=== PATIENT | female | born 1995 | race Caucasian/White ===

== ENCOUNTER 2021-09-20 13:52 | Outpatient (CLI) | payer MEDICAID, SELFPAY ==
[2021-09-20 18:01] LABS: Chlamydia DNA Amplified* DETECTED (No Detected)
[2021-09-20 18:02] LABS: GC DNA Amplified* Not Detected (No Detected)
[2021-09-20 18:02] LABS: Hepatitis B Surface Antigen* Negative (Negative)
[2021-09-20 18:08] LABS: HIV 1/2/P24 Combo Screen* Negative (Negative)
[2021-09-20 18:19] LABS: Hepatitis C Virus Antibody* Negative (Negative)
[2021-09-22 23:33] LABS: Rapid Plasma Reagin (RPR) Non Reactive (Non Reactive)
[2021-09-23 01:29] LABS: Rubella Antibody IgG 9.3 IU/mL; Varicella-Zoster Virus Ab, IgG 90.1 IV
== END 2021-09-20 13:53 | disposition home or self-care (01) ==
PROVIDERS: Visit Provider Advanced Practice Midwife
DX: Z34.91 Encounter for supervision of normal pregnancy, unspecified, first trimester (principal); O20.9 Hemorrhage in early pregnancy, unspecified; Z3A.01 Less than 8 weeks gestation of pregnancy
CPT/HCPCS: 76817; 86592; 86703; 86762; 86787; 86803; 86850; 86900; 86901; 87086; 87340; 87491; 87591

== ENCOUNTER 2021-09-28 20:34 | Emergency (ER) | payer MEDICAID, SELFPAY ==
[2021-09-28 20:42] VITALS: BP 113/75; PULSE 80; RESP 16; TEMP 37.1; O2SAT 100; BMI 27.6
--- NOTE | 2021-09-28 21:00 | ED.NURSE ---
patient states feeling better, MD aware
[2021-09-28] MEDS: ELECTROLYTES/DEXTROSE ORAL SOL 1,000 ML 1014 ML PO (21:02)
[2021-09-28 21:16] LABS: Appearance Urine Slightly Cloudy (Clear); Bilirubin Urine Negative (Negative); Blood Urine 1+ (Negative); Color Urine Yellow (Yellow); Glucose Urine Negative (Negative); Ketones Urine 2+ (Negative); Leukocyte Esterase Urine Trace (Negative); Nitrite Urine Negative (Negative); Protein Urine Negative (Negative); Urobilinogen Urine 0.2 (0.2-1.0); pH Urine 6.5 (5.0-8.5)
[2021-09-28] MEDS: METOCLOPRAMIDE 10 MG TABLET 5 MG PO (21:23)
[2021-09-28] MEDS: diphenhydrAMINE 25 MG CAPSULE PO (21:23)
[2021-09-28 21:28] LABS: WBC Urine 0-2 (0-5)
[2021-09-28 21:29] LABS: Squamous Epithelial Cell Urine Moderate (None-Few)
--- NOTE | 2021-09-29 09:52 | ED_ITS ---
HPI - Nausea/Vomiting/Diarrhea General Date Seen: 09/28/21 Chief complaint: Nausea/Vomiting Stated complaint: 6-7 WEEKS PRGNT,CAN'T KEEP FOOD DOWN Time Seen by Provider: 09/28/21 20:54 Source: patient and family Mode of arrival: ambulatory Limitations: no limitations History of Present Illness HPI Narrative: Patient is a 25-year-old approximately 7 weeks gestation. She has been having nausea and vomiting. During this she [facility] And prescribed Zofran for this. She finds this is not working very well presents to the ER [facility]. Today she has vomited 3 times, she is trying small meals also, and fluids she is urinating okay. With no evidence of diarrhea too. She has no fevers no chills no coughing, denies any abdominal pain associated with this. There is no rashes or any other high- risk symptoms. She denies any dysuria frequency. She had at the same thing with the last . Although she feels that this is worse. MD elicited complaint: nausea and vomiting Related Data Home Medications Medication Instructions Recorded Confirmed prenat.vits,irina,[id number] 1 tab PO QDAY 09/20/21 09/28/21 Previous Rx's Medication Instructions Recorded ondansetron HCl 4 mg tablet 4 mg PO Q8H PRN #30 tab 09/20/21 metoclopramide HCl 5 mg tablet 5 mg PO TID PRN #30 tab 09/28/21 (Reglan) Allergies Allergy/AdvReac Type Severity Reaction Status Date / Time No Known Drug Allergies Allergy Verified 09/28/21 20:45 Review of Systems Status of ROS: Reports: 6 or more systems reviewed and unremarkable except as noted in History and below [facility] Medical History Chlamydia infection affecting Social History Smoking Status: Never smoker Second hand tobacco smoke exposure: No How often do you have a drink containing alcohol: never AUDIT-C Alcohol total score: 0 Non-prescribed substance use: denies use Little interest or pleasure in doing things: not at all Feeling down, depressed, or hopeless: not at all Exam Narrative: Exam Narrative: Patient is seen and assessed she is nontoxic speaking to me normally. Her pupils are equal round reactive to light there is no scleral icterus or redness, TMs are normal oropharynx is normal with excellent hydration status , her neck is supple, chest is clear heart sounds are normal , her abdomen is soft there was no organomegaly I cannot feel a gravid abdomen. Bowel sounds are normal. Skin reveals no petechiae or rashes Const: Vital Signs, click to edit/add: Vital Signs - 24 hr 09/28/21 20:42 Temperature 98.7 F Pulse Rate [Right Pulse Oximeter] 80 Respiratory Rate 16 Blood Pressure [Ri ght Upper Arm] 113/75 Pulse Oximetry 100 Documenting provider has reviewed patient's vital signs: yes Course Course Hospital Course: She was watch for greater than an hour the emergency room. I was able to reviewing UpToDate the next steps. Benadryl or diphenhydramine along with Reglan would be the next steps. We gave her 25 mg of Benadryl along with 5 mg of Reglan that she can use. She had no further vomiting, and her nausea improved slightly. She was able to keep down Pedialyte. Think at this point would be reasonable to discharge her home. I will have her call [facility] tomorrow to ensure that this is a working plan for her. She will not use Zofran with the medication Vital Signs Vital signs: Initial Vital Signs Temperature 98.7 F 09/28/21 20:42 Temperature Source Temporal Artery Scan 09/28/21 20:42 Pulse Rate 80 09/28/21 20:42 Pulse Rhythm 09/28/21 20:42 Respiratory Rate 16 09/28/21 20:42 Blood Pressure 113/75 09/28/21 20:42 Blood Pressure Mean 87 09/28/21 20:42 Blood Pressure Position Sitting 09/28/21 20:42 Pulse Oximetry 100 09/28/21 20:42 Oxygen Delivery Method 09/28/21 20:42 Vital Signs Temperature 98.7 F 09/28/21 20:42 Pulse Rate 80 09/28/21 20:42 Respiratory Rate 16 09/28/21 20:42 Blood Pressure 113/75 09/28/21 20:42 Pulse Oximetry 100 09/28/21 20:42 Temperature 98.7 F 09/28/21 20:42 Pulse Rate 80 09/28/21 20:42 Respiratory Rate 16 09/28/21 20:42 Blood Pressure 113/75 09/28/21 20:42 Pulse Oximetry 100 09/28/21 20:42 MDM - Nausea/Vomiting/Diarrhea MDM Narrative Medical decision making narrative: Differential diagnosis includes but is not limited to viral gastroenteritis, drug food poisoning, pyloric stenosis, gastritis, pancreatitis, hepatitis, cholecystitis, appendicitis, bowel obstruction, hyperemesis, cyclic vomiting syndrome, bulimia nervosa, migraine headache, motion sickness and medication side effect. These include the life threatening complications of appendicitis, drug food poisoning and bowel obstruction. Lab Data Labs: Lab Results 09/28/21 Range/Units 20:58 Urine Color Yellow (Yellow) Urine Appearance Slightly Cloudy A (Clear) Urine pH 6.5 (5.0-8.5) Ur Specific [place] 1.010 (1.000-1.030) Urine Protein Negative (Negative) Urine Glucose (UA) Negative (Negative) Urine Ketones 2+ A (Negative) Urine Blood 1+ A (Negative) Urine Nitrite Negative (Negative) Urine Bilirubin Negative (Negative) Urine Urobilinogen 0.2 (0.2-1.0) Ur Leukocyte Esterase Trace A (Negative) Urine RBC 2-5 A (0-2) Urine WBC 0-2 (0-5) Ur Squamous Epith Cells Moderate A (None-Few) Urine Bacteria None (None) Discharge Plan Discharge Clinical Impression: Hyperemesis arising during Patient Disposition: Home w/ Parent or Adult Condition: Improved Instructions: Hyperemesis Gravidarum (ED) Additional Instructions: home,rest and the medication. Take benadryl 25 mg with the reglan up to three times a day as needed. Please follow up with [employer] to check in also. Discharge Diet: Regular Prescriptions: New metoclopramide HCl [Reglan] 5 mg tablet 5 mg PO TID PRN (Reason: nausea and vomiting) Qty: 30 0RF No Action prenat.vits,irina,[id number] Tablet 1 tab PO QDAY 0RF ondansetron HCl 4 mg tablet 4 mg PO Q8H PRN (Reason: nausea and vomiting) Qty: 30 2RF Follow Up/Referrals: Provider,Not a Local [Primary Care Provider] - Stand Alone Forms: [employer] Info Instructions
== END 2021-09-28 22:24 | disposition home or self-care (01) ==
PROVIDERS: Emergency Provider Family Medicine
DX: O21.0 Mild hyperemesis gravidarum (principal); Z3A.01 Less than 8 weeks gestation of pregnancy
CPT/HCPCS: 81001; 99283; 99284; A9270

== ENCOUNTER 2021-10-04 14:54 | Outpatient (CLI) | payer MEDICAID, SELFPAY ==
--- NOTE | 2021-10-04 15:00 | CRLHL7_ITS ---
For Patients: As a result of the Century Cures Act, medical imaging exams and procedure reports are released immediately into your electronic medical record. You may view this report before your referring provider. If you have questions, please contact your health care provider. INDICATION: First trimester scan, establish dates. COMPARISON: 09/20/2021 TECHNIQUE: Real-time esparza-scale imaging of the pelvis was performed. FINDINGS: Sonographic imaging demonstrates a single living intrauterine gestation. The embryo demonstrates a regular cardiac rate measuring 173 beats per minute. The embryo`s crown-rump length measurement of 1.7 cm corresponds to a gestational age of 8 weeks 1 day with a sonographic due date of 05/15/2021. There is a normal-appearing yolk sac. There are no gross abnormalities noted within the embryo at this early state of development. The gestational sac has a normal appearance. There is a left superior perigestational hemorrhage measuring 1.7 x 1.3 x 2.8 cm. The amount of fluid within the sac appears appropriate for gestational age. The cervix is closed. The myometrium appears normal. The ovaries are of normal size. Corpus luteal cyst right ovary. There are no suspicious fluid collections noted in the cul-de-sac. IMPRESSION: Single living intrauterine with sonographic gestational age 8 weeks 1 day and sonographic due date 05/15/2021. Left superior subchorionic hemorrhage measuring 1.7 x 1.3 x 2.8 cm. Dictated by Jaquan Gaspar MD @ 10/04/2021 3:53:50 PM (Electronically Signed)
== END 2021-10-04 14:55 | disposition home or self-care (01) ==
LOC: US 14:54
PROVIDERS: Visit Provider Advanced Practice Midwife
DX: Z34.91 Encounter for supervision of normal pregnancy, unspecified, first trimester (principal); O20.9 Hemorrhage in early pregnancy, unspecified; Z3A.08 8 weeks gestation of pregnancy
CPT/HCPCS: 76817

== ENCOUNTER 2021-10-13 16:48 | Outpatient (CLI) | payer MEDICAID, SELFPAY ==
[2021-10-13 19:17] LABS: Chlamydia DNA Amplified* NOT DETECTED (No Detected); GC DNA Amplified* NOT DETECTED (No Detected)
== END 2021-10-13 16:49 | disposition home or self-care (01) ==
LOC: NFLDREF 16:48
PROVIDERS: Visit Provider Advanced Practice Midwife
DX: O98.811 Other maternal infectious and parasitic diseases complicating pregnancy, first trimester (principal); A74.9 Chlamydial infection, unspecified; Z3A.10 10 weeks gestation of pregnancy
CPT/HCPCS: 87491; 87591

== ENCOUNTER 2021-10-19 15:27 | Outpatient (CLI) | payer MEDICAID, SELFPAY ==
--- NOTE | 2021-10-19 16:00 | CRLHL7_ITS ---
For Patients: As a result of the Century Cures Act, medical imaging exams and procedure reports are released immediately into your electronic medical record. You may view this report before your referring provider. If you have questions, please contact your health care provider. INDICATION: Mild hyperemesis. TECHNIQUE: Ultrasound OB pelvis transabdominal. Real-time esparza-scale imaging of the pelvis was performed. COMPARISON: Pelvic ultrasound from July 04, 2021 and 09/20/2021. FINDINGS: Single intrauterine gestation. The embryo demonstrates a regular cardiac rate measuring 163 beats per minute. The embryo`s crown rump length measurement of 3.3 cm corresponds to a gestational age of 10 weeks and 3 days with a sonographic due date of 05/14/2022. Normal appearing yolk sac. The placenta has not yet developed. No perigestational hemorrhage. The ovaries are of normal size. No suspicious fluid collections in the cul-de-sac. IMPRESSION: Single viable intrauterine . No abnormalities seen. Dictated by Lasha Rock MD @ 10/19/2021 5:22:39 PM (Electronically Signed)
--- NOTE | 2021-10-19 16:00 | CRLHL7_ITS ---
For Patients: As a result of the Century Cures Act, medical imaging exams and procedure reports are released immediately into your electronic medical record. You may view this report before your referring provider. If you have questions, please contact your health care provider. INDICATION: Mild hyperemesis. TECHNIQUE: Ultrasound abdomen complete. Sonographic images of the entire abdomen were obtained using esparza-scale and color Doppler. COMPARISON: None. FINDINGS: Liver: Normal in size and echotexture. No masses. No intrahepatic biliary dilation. Gallbladder: Surgically absent.. Common bile duct: 5 mm. Pancreas: Normal in size and appearance. Spleen: Normal in size and appearance. Kidneys: Both kidneys are normal in size. Normal echotexture and cortex. No suspicious masses, stones, or hydronephrosis. Vasculature: Proximal abdominal aorta and IVC are normal in caliber. IMPRESSION: Unremarkable abdomen ultrasound. Dictated by Lasha Rock MD @ 10/19/2021 5:20:58 PM (Electronically Signed)
== END 2021-10-19 15:28 | disposition home or self-care (01) ==
PROVIDERS: Visit Provider Advanced Practice Midwife
DX: O21.0 Mild hyperemesis gravidarum (principal)
CPT/HCPCS: 76700; 76801; 80048; 84156; 87086; 93976

== ENCOUNTER 2021-10-21 10:45 | Outpatient (CLI) | payer MEDICAID, SELFPAY ==
--- NOTE | 2021-10-21 11:00 | CRLHL7_ITS ---
For Patients: As a result of the Century Cures Act, medical imaging exams and procedure reports are released immediately into your electronic medical record. You may view this report before your referring provider. If you have questions, please contact your health care provider. Indication: MILD HYPEREMESIS GRAVIDARUM Technique: Ultrasound images of the right basilic vein and right internal jugular vein. IMPRESSION: Sonographic guidance for right PICC line placement. Dictated by Jaquan Gaspar MD @ 10/21/2021 11:56:33 AM (Electronically Signed)
--- NOTE | 2021-10-21 11:12 | CRLHL7_ITS ---
For Patients: As a result of the Cures Act, medical imaging exams and procedure reports are released immediately into your electronic medical record. You may view this report before your referring provider. If you have questions, please contact your health care provider. INDICATION: PICC line placement. COMPARISON: None TECHNIQUE: AP sitting single view study FINDINGS: TUBES AND LINES: PICC line in the distal SVC HEART AND MEDIASTINUM: The heart size is normal. The mediastinal contour appears normal for patient age. LUNGS AND PLEURAL SPACES: The lungs appear normal.The pleural spaces are unremarkable. OSSEOUS STRUCTURES: Age-appropriate appearance. No acute focal finding. IMPRESSION: PICC line in the distal SVC. Normal appearing lungs and pleural spaces. Dictated by Luis Adame MD @ 10/21/2021 11:49:51 AM (Electronically Signed)
[2021-10-21 11:16] VITALS: BP 101/67; PULSE 82; O2SAT 100
[2021-10-21] MEDS: LACTATED RINGERS 1000 ML 1,000 ML 500 ML IV (12:15)
[2021-10-21] MEDS: ONDANSETRON 2 MG/ML inj 4 MG IV (12:24)
[2021-10-21 12:31] VITALS: BP 93/60; PULSE 76; RESP 16; O2SAT 100
[2021-10-21] MEDS: METOCLOPRAMIDE HCL 5 MG/ML INJ 10 MG IV (13:13)
[2021-10-21] MEDS: MULTIPLE VITAMINS INJECTION 10 ML in LACTATED RINGERS 1000 ML 1,000 ML 505 ML IV (13:14)
[2021-10-21 14:33] VITALS: BP 109/63; PULSE 78; RESP 16; O2SAT 100
[2021-10-21 15:03] VITALS: BP 94/62; PULSE 72; RESP 14; O2SAT 99
== END 2021-10-21 15:30 | disposition home or self-care (01) ==
PROVIDERS: Visit Provider Advanced Practice Midwife
DX: O21.0 Mild hyperemesis gravidarum (principal)
CPT/HCPCS: 36573; 71045; C1751; J2405; J2765; J7120

== ENCOUNTER 2021-10-28 09:11 | Outpatient (CLI) | payer MEDICAID, SELFPAY ==
--- NOTE | 2021-10-28 09:15 | CRLHL7_ITS ---
For Patients: As a result of the Century Cures Act, medical imaging exams and procedure reports are released immediately into your electronic medical record. You may view this report before your referring provider. If you have questions, please contact your health care provider. CLINICAL HISTORY: First trimester screening. TECHNIQUE: Real time esparza scale imaging of the fetus was performed using a transabdominal approach. FINDINGS: Sonographic imaging demonstrates a single living intrauterine gestation. The fetus demonstrates a regular cardiac rate measuring 163 beats per minute. The crown rump length measurement of 5.1 cm corresponds to a gestation of 11 weeks 5 days which is concordant with the earlier dating ultrasound. A nuchal translucency measurement of 1.2 mm was obtained for screening purposes. IMPRESSION: Nuchal translucency measurement obtained for first trimester screen. Dictated by Jaquan Gaspar MD @ 10/28/2021 10:16:22 AM (Electronically Signed)
== END 2021-10-28 09:12 | disposition home or self-care (01) ==
LOC: US 09:12
PROVIDERS: Visit Provider Advanced Practice Midwife
DX: Z34.91 Encounter for supervision of normal pregnancy, unspecified, first trimester (principal); Z3A.11 11 weeks gestation of pregnancy
CPT/HCPCS: 36415; 76801; 76813; 84163; 84702

== ENCOUNTER 2022-01-23 14:57 | Outpatient (CLI) | payer MEDICAID, SELFPAY ==
[2022-01-23 19:13] LABS: HIV 1/2/P24 Combo Screen* Negative (Negative)
[2022-01-23 20:01] LABS: GC DNA Amplified* NOT DETECTED (No Detected)
[2022-01-23 20:36] LABS: Chlamydia DNA Amplified* DETECTED (No Detected)
[2022-01-25 14:51] LABS: Hepa B Virus Surf Ag Conf Non Confirmed (Non Confirmed)
[2022-01-25 18:12] LABS: HSV 2 Glycoprotein G IgG 0.79 IV (<=0.89)
[2022-01-25 23:48] LABS: Rapid Plasma Reagin (RPR) Non Reactive (Non Reactive)
[2022-01-28 15:19] LABS: HSV 1 and/or 2 IgM by ELISA 0.42 IV (<=0.89); HSV Type 1/2 Combined Ab, IgG >22.40 IV
== END 2022-01-23 14:58 | disposition home or self-care (01) ==
PROVIDERS: Visit Provider Advanced Practice Midwife
DX: Z34.92 Encounter for supervision of normal pregnancy, unspecified, second trimester (principal); Z3A.24 24 weeks gestation of pregnancy
CPT/HCPCS: 86592; 86694; 86695; 86696; 86703; 87341; 87491; 87591

== ENCOUNTER 2022-02-01 13:47 | Outpatient (CLI) | payer MEDICAID, SELFPAY ==
--- NOTE | 2022-02-01 14:00 | CRLHL7_ITS ---
For Patients: As a result of the Century Cures Act, medical imaging exams and procedure reports are released immediately into your electronic medical record. You may view this report before your referring provider. If you have questions, please contact your health care provider. INDICATION: Evaluate anatomy. COMPARISON: 10/28/2021, 10/19/2021 TECHNIQUE: Real time esparza scale imaging of the fetus was performed as well as color Doppler analysis of the umbilical vessels. FINDINGS: Sonographic imaging demonstrates a single living intrauterine gestation. Fetus demonstrates a regular cardiac rate of 155 beats per minute. Fetus has a vertex position. The placenta lies anteriorly without evidence of placenta previa. The edge of the placenta is located 10.7 cm from the internal cervical os. Amniotic fluid volume appears normal. Single deepest vertical pocket: 4.6 cm. The cervix is closed and measures 3.9 cm in length. The composite ultrasound gestational age is calculated at 25 weeks 3 days with an estimated sonographic due date of 05/14/2022. The estimated weight is 756 grams which lies at the 22nd %. The following biometric measurements were obtained: Biparietal diameter: 6.1 cm/24 weeks 6 days 21st% Head circumference: 23.4 cm/25 weeks 3 days 26th% Abdominal circumference: 20.2 cm/24 weeks 6 days 23rd% Femur length: 4.6 cm/25 weeks 1 day 27th% The HC/AC ratio measures: 1.16 range (0.04-1.22) On anatomic survey, there is a normal appearance of the cerebral ventricles, cavum septi pellucidi, cisterna magna and cerebellum. The nose, lips, and facial profile appear normal. The cervical, thoracic and lumbar spine are well visualized and appear normal. There is a normal four-chamber heart view and the left and right ventricular outflow tracts appear normal. The diaphragm and stomach appear normal. The kidneys and bladder also appear normal. There is a normal three-vessel cord and cord insertion site. The four extremities appear normal. IMPRESSION: Normal OB ultrasound exam with concordance of clinical and sonographic dating. No intrinsic abnormalities noted on anatomic survey. Dictated by Jaquan Gaspar MD @ 02/02/2022 9:33:12 AM (Electronically Signed)
== END 2022-02-01 13:48 | disposition home or self-care (01) ==
LOC: US 13:47
PROVIDERS: Visit Provider Advanced Practice Midwife
DX: Z34.92 Encounter for supervision of normal pregnancy, unspecified, second trimester (principal); Z3A.25 25 weeks gestation of pregnancy
CPT/HCPCS: 76805

== ENCOUNTER 2022-03-03 14:13 | Outpatient (CLI) | payer MEDICAID, SELFPAY ==
[2022-03-03 18:46] LABS: Chlamydia DNA Amplified* NOT DETECTED (No Detected); GC DNA Amplified* NOT DETECTED (No Detected)
== END 2022-03-03 14:14 | disposition home or self-care (01) ==
LOC: NFLDREF 14:14
PROVIDERS: Visit Provider Obstetrics & Gynecology
DX: Z34.93 Encounter for supervision of normal pregnancy, unspecified, third trimester (principal); Z3A.29 29 weeks gestation of pregnancy
CPT/HCPCS: 87491; 87591

== ENCOUNTER 2022-03-17 10:45 | Outpatient (CLI) | payer MEDICAID, SELFPAY ==
[2022-03-17 10:53] VITALS: BP 107/53; PULSE 74; RESP 16; O2SAT 96
--- NOTE | 2022-03-17 11:22 | CRLHL7_ITS ---
For Patients: As a result of the Century Cures Act, medical imaging exams and procedure reports are released immediately into your electronic medical record. You may view this report before your referring provider. If you have questions, please contact your health care provider. Indication: PICC line confirmation Comparison: None available. Technique: Single AP view chest Findings: Initial placement of PICC line demonstrated a mildly low lying position with final position in satisfactory location of the cavoatrial junction. Mild interstitial prominence is seen which may represent mild bronchial thickening and/or pulmonary vascular congestion. No dense consolidation, effusion or pneumothorax. The cardiomediastinal silhouette is within normal limits. The bony thorax is grossly intact. Impression: Satisfactory position of PICC line with the tip at the cavoatrial junction. Mild bronchial thickening and/or pulmonary vascular congestion. Dictated by Ti Orourke MD @ 03/17/2022 12:30:27 PM (Electronically Signed)
[2022-03-17] MEDS: MULTIPLE VITAMINS INJECTION 10 ML in LACTATED RINGERS 1000 ML 1,000 ML 505 ML IV (12:46)
--- NOTE | 2022-03-17 12:46 | PC.NURSE ---
PICC Line placement procedure was performed under portable ultrasound guidance. Pictures were not obtained.
[2022-03-17] MEDS: ONDANSETRON 2 MG/ML inj 4 MG IV (12:47)
[2022-03-17 13:53] VITALS: BP 101/62; PULSE 79; RESP 16; O2SAT 97
== END 2022-03-17 13:54 | disposition home or self-care (01) ==
PROVIDERS: Visit Provider Advanced Practice Midwife
DX: O21.0 Mild hyperemesis gravidarum (principal)
CPT/HCPCS: 36573; A4221; C1751; J2405; J7120

== ENCOUNTER 2022-03-27 09:11 | Outpatient (CLI) | payer MEDICAID, SELFPAY ==
--- NOTE | 2022-03-27 09:15 | CRLHL7_ITS ---
For Patients: As a result of the Cures Act, medical imaging exams and procedure reports are released immediately into your electronic medical record. You may view this report before your referring provider. If you have questions, please contact your health care provider. INDICATION: female. Small for dates. Hyperemesis. Follow-up. TECHNIQUE: Transabdominal obstetrical ultrasound. COMPARISON: February 01, 2022. FINDINGS: Single living intrauterine in vertex presentation. Anterior placenta. heart rate 150 beats per minute. Normal amniotic fluid. Single deepest pocket measurement 5.9 cm. Biparietal diameter 8.1 cm, 32 weeks 3 days, 22nd percentile. Head circumference 30.9 cm, 33 weeks 4 days, 25th percentile. Abdominal circumference 28.7 cm, 32 weeks 5 days, 37th percentile. Femur length 6.2 cm, 32 weeks 0 days, 12th percentile. The head to abdominal circumference ratio is normal at 1.06 (0.96-1.12). Composite calculated ultrasound age 32 weeks 5 days with a sonographic due date of May 17, 2022. Appropriate growth and maturation compared to the prior study. Estimated weight 1993 g which lies at the 24th percentile. IMPRESSION : Single living intrauterine in vertex presentation with a composite calculated ultrasound age of 32 weeks 5 days with a sonographic due date of May 17, 2022. Appropriate growth and maturation in the interval. Dictated by Adama Donnelly MD @ 03/27/2022 10:56:50 AM (Electronically Signed)
== END 2022-03-27 09:12 | disposition home or self-care (01) ==
LOC: US 09:11
PROVIDERS: Visit Provider Advanced Practice Midwife
DX: O21.0 Mild hyperemesis gravidarum (principal); O36.5930 Maternal care for other known or suspected poor fetal growth, third trimester, not applicable or unspecified; Z3A.32 32 weeks gestation of pregnancy
CPT/HCPCS: 76816

== ENCOUNTER 2022-04-17 01:22 | Outpatient (CLI) | payer MEDICAID, SELFPAY ==
[2022-04-17 01:36] VITALS: BP 121/75; PULSE 95; RESP 16; TEMP 37.2
[2022-04-17 02:00] LABS: Amnisure Rom* Negative
--- NOTE | 2022-04-17 03:37 | PC.OBNST ---
NST Note NST Note Start: 04/17/22 01:29 Freq: ONCE Status: Active Protocol: Document 04/17/22 03:34 SASHA (Rec: 04/17/22 03:36 SASHA [id number]) NST Note 2 Para (# of births) 1 EDC 05/14/22 Gestational Age In Weeks & Days 36 Weeks & 1 Days Patient Presented with Complaint(s) of Contractions/cramping,Leaking fluid Reactive Yes Appropriate for Gestational Age Yes ASUNCION Boland RNC Date 04/17/22 Reactive Yes Appropriate for Gestational Age Yes ASUNCION Le RN Date 04/17/22 OB NST charge Yes Complete NST Note via Write Note Yes The provider's electronic signature indicates the NST is reactive/appropriate for gestational age. *Note to provider: If an addendum is required, open the patient's chart and click on the note under the Nurse/Allied Health tab.
== END 2022-04-17 03:31 | disposition home or self-care (01) ==
LOC: OB 03:18 → OB CLI 18:46 → OB 18:46
PROVIDERS: Visit Provider Advanced Practice Midwife
DX: O47.03 False labor before 37 completed weeks of gestation, third trimester (principal); Z3A.36 36 weeks gestation of pregnancy
CPT/HCPCS: 59025; 84112; 99213

== ENCOUNTER 2022-04-18 15:39 | Outpatient (CLI) | payer MEDICAID, SELFPAY ==
[2022-04-19 20:05] LABS: Strep B DNA Probe POSITIVE (Negative)
[2022-04-20 07:36] LABS: Strep B Pen/Amox Allergy No
== END 2022-04-18 15:40 | disposition home or self-care (01) ==
LOC: NFLDREF 15:39
PROVIDERS: Visit Provider Advanced Practice Midwife
DX: Z34.83 Encounter for supervision of other normal pregnancy, third trimester (principal); Z3A.36 36 weeks gestation of pregnancy
CPT/HCPCS: 87081; 87653

== ENCOUNTER 2022-04-25 14:52 | Outpatient (CLI) | payer MEDICAID, SELFPAY ==
--- NOTE | 2022-04-25 14:00 | CRLHL7_ITS ---
For Patients: As a result of the Cures Act, medical imaging exams and procedure reports are released immediately into your electronic medical record. You may view this report before your referring provider. If you have questions, please contact your health care provider. INDICATION: Small for Dates Hyperemesis COMPARISON: 03/27/2022 TECHNIQUE: Real time esparza scale imaging of the fetus was performed. FINDINGS: Sonographic imaging demonstrates a single living intrauterine gestation. Fetus demonstrates a regular cardiac rate of 145 beats per minute. Fetus has a vertex position. The placenta lies anteriorly. Amniotic fluid volume appears normal and there is a single deepest vertical pocket: 5.4 cm. GUILLERMO 11.2 cm. The estimated weight is 2986gm which lies at the 40th %. On the prior OB ultrasound exam dated 03/27/2022 the estimated weight was at the 24th%. BPD 17th percentile. HC 53rd percentile. AC 50th percentile. FL 21st percentile. The HC/AC ratio measures 1.02 range (0.92-1.06). IMPRESSION: Sonographic gestational age 36 weeks 5 days and sonographic due date 05/18/2022. Sonographic age is 4 days behind the clinical age. Estimated weight 48th percentile. Abdominal circumference 50th percentile. Dictated by Jaquan Gaspar MD @ 04/26/2022 9:58:39 AM (Electronically Signed)
== END 2022-04-25 14:53 | disposition home or self-care (01) ==
LOC: US 14:52
PROVIDERS: Visit Provider Advanced Practice Midwife
DX: O36.5930 Maternal care for other known or suspected poor fetal growth, third trimester, not applicable or unspecified (principal); Z3A.36 36 weeks gestation of pregnancy
CPT/HCPCS: 76816

== ENCOUNTER 2022-05-02 13:00 | Outpatient (RCR) | payer MEDICAID, SELFPAY ==
--- NOTE | 2022-04-24 15:20 | URNOTE ---
Received request for Injectafer ([id number]). Per [facility] Injectable prior authorization list, prior authorization is not required.
[2022-04-25] MEDS: FERRIC CARBOXYMALTOSE 750 MG in 0.9 % SODIUM CHLORIDE 250 ml 250 ML 1060 MG IVPB (13:40)
[2022-05-02 13:00] VITALS: BP 114/76; PULSE 78; RESP 14; TEMP 36.1; O2SAT 98
[2022-05-02] MEDS: FERRIC CARBOXYMALTOSE 750 MG in 0.9 % SODIUM CHLORIDE 250 ml 250 ML 1060 MG IVPB (13:05)
== END 2022-10-22 23:59 | disposition home or self-care (01) ==
LOC: CCIC 13:00
PROVIDERS: Visit Provider Advanced Practice Midwife
DX: O99.019 Anemia complicating pregnancy, unspecified trimester (principal)
CPT/HCPCS: 96365; J1439; J7050

== ENCOUNTER 2022-05-19 15:37 | Outpatient (CLI) | payer MEDICAID, SELFPAY ==
[2022-05-19 15:59] VITALS: BP 118/68; PULSE 81
[2022-05-19 16:24] LABS: Amnisure Rom* Negative
--- NOTE | 2022-05-19 18:40 | PC.OBNST ---
NST Note NST Note Start: 05/19/22 15:42 Freq: ONCE Status: Active Protocol: Document 05/19/22 18:38 AM (Rec: 05/19/22 18:40 AM [id number]) NST Note 2 Para (# of births) 1 EDC 05/14/22 Gestational Age In Weeks & Days 40 Weeks & 5 Days Patient Presented with Complaint(s) of Contractions/cramping,Leaking fluid Other Complaints Amnisure negative SVE 1-2/50/- 2 Reactive Yes RN AMiner RNC Date 05/19/22 Reactive Yes RN HCuddy RNC Date 05/19/22 OB NST charge Yes Complete NST Note via Write Note Yes The provider's electronic signature indicates the NST is reactive/appropriate for gestational age. *Note to provider: If an addendum is required, open the patient's chart and click on the note under the Nurse/Allied Health tab.
== END 2022-05-19 17:05 | disposition home or self-care (01) ==
LOC: OB OUT 15:37 → OB 15:38
PROVIDERS: Visit Provider Advanced Practice Midwife
DX: O47.1 False labor at or after 37 completed weeks of gestation (principal); Z3A.40 40 weeks gestation of pregnancy
CPT/HCPCS: 59025; 84112; 99213

== ENCOUNTER 2022-05-23 06:57 | Inpatient (IN) | payer MEDICAID, SELFPAY ==
[2022-05-23] VITALS (42 sets, daily range): BP systolic 106–136; BP diastolic 56–82; PULSE 51–216; RESP 18; TEMP 36.6–37; O2SAT 79–100; BMI 30.4
--- NOTE | 2022-05-23 07:43 | W.PM.LDBA ---
Subjective History of Present Illness Time Seen by Provider: 08:00 Date Seen: 05/23/22 Narrative: Patient is being admitted to Labor and Delivery for IOL. She is a 26 year old at 41.2 weeks gestation. Her full history and physical was dictated by Lee Sáurez on 04/25/22. Please see this for details. Her partner is at the bedside for support. She had an epidural with her previous , but desires an unmedicated waterbirth this time. (FOB may not be involved) Daughter: Renate, Mom: Gabby. Its a baby Girl! ([place]?) H & P done 04/25/22 by Lee Suárez 1. + Chlamydia at [facility], Md sent for her and partner. SUZETTE done, neg + Chlamydia 01/23. Plans for partner to be treated by own provider: DONE. SUZETTE 4 weeks after treatment: collected 03/03/22: negative 2. Rubella non immune, NEEDS PP immunization 3. Varicella non immune, NEEDS PP immunization 4. Hyperemesis with increased weight loss. Improved. Goals met and PICC DC'd 03/29. -PICC line placed. -Referral to MPP placed, pt has appointment for Level 2 @ 19 weeks 5. Possible exposure to STI's - labs 01/23/22 6. +HSV, would recommend prophylaxis treatment at 36 weeks Discussed on 03/03/22, patient denies known h/o oral or genital lesions Valtrex script sent 04/10/22 - started treatment on 04/17 7. Anemia Ferrous sulfate delayed release 324 mg daily prescribed 03/03/2022. 9.5 at 36 weeks, scheduled for iron infusions 04/20 8. Measuring small for dates @ 31w Growth @ 33w: 24%ile Growth @ 37w: 48%ile 9. GBS +, recommend antibiotics in labor OB - Problem Based A/P Additional Plan (1) Anemia affecting , antepartum: Status: Acute (2) : Status: Acute (3) Hyperemesis complicating , antepartum: Status: Acute (4) Chlamydia infection affecting : Status: Acute Plan at 41.2 weeks GBS positive complications: -Anemia -Chlamydia treated X2 in -Rubella and varicella non immune -HSV, denies hx of lesions, started on valtrex -hyperemesis requiring a PICC line IOL for dates 1. Admit to L & D for IOL for dates. Options reviewed, decision made to proceed with pitocin 2. Antibiotics for GBS prophylaxis 3. IV access for antibiotics 4. Continuous monitoring per pitocin protocol 5. CBC & type/screen for anemia in 6. Candidate for analgesia of choice. Planning unmedicated 7. Desires waterbirth. Hep C neg and consent signed. 8. Anticipate progress to NVD Delivery/Labor/Induction Plan Plan: induction Induction method: per pitocin protocol OB Exam Physical Exam Vital signs: Pulse BP Pulse Ox 71 130/64 100 05/23/22 07:15 05/23/22 07:15 05/23/22 07:16 Narrative: VSS, afebrile? General Appearance:? Calm, cooperative.? No acute distress.? Normal affect.? Psychiatric Exam: Alert and oriented, appropriate affect? HEENT: normocephalic, neck supple, full ROM? CHEST:? Symmetrical chest wall movement.? Normal respiratory effort.? Clear to auscultation? HEART:? regular rate and rhythm? Abdomen: Gravid, non tender? EXTREMITIES:? normal and trace edema? SKIN: warm, dry.? Ctx:? Q 3-6 min apart.? Mild? ? ? FHTs:? Baseline: 135? Variability: moderate?? Accels: present??? Decels:? none? SVE: 2/80/0. No lesions noted. Membranes: intact ?
[2022-05-23 08:22] LABS: Basophils Absolute Auto 0.02 K/uL (0.00-0.30); Basophils Percent Auto 0.2 % (0.0-3.0); Eosinophils Absolute Auto 0.05 K/uL (0.00-0.50); Eosinophils Percent Auto 0.6 % (0.0-7.0); Hematocrit 32.7 % (33.0-51.0); Hemoglobin* 10.6 gm/dL (12.0-16.0); Immature Granulocytes Abs Auto 0.02 K/uL (0.00-0.30); Immature Granulocytes Pct Auto 0.2 %; Lymphocytes Absolute Auto 1.75 K/uL (0.90-2.90); Lymphocytes Percent Auto 20.7 % (20-44); Mean Corpuscular HGB Conc 32 gm/dL (32-36); Mean Corpuscular Hemoglobin 27 pg (26-34); Mean Corpuscular Volume 84 fL (80-100); Monocytes Percent Auto 6.2 % (0.0-11.0); Neutrophils Percent Auto 72.1 % (42.0-72.0); Platelet Count* 242 K/uL (140-440); Red Blood Count 3.88 m/uL (4.00-5.20); White Blood Count* 8.45 K/uL (4.50-11.00)
[2022-05-23] MEDS: LACTATED RINGERS 1000 ML 1,000 ML 125 ML IV ×2 (08:40→16:40)
[2022-05-23] MEDS: AMPICILLIN 2 GM in 0.9 % SODIUM CHLORIDE Mini-bag 100 ML IVPB (08:41)
[2022-05-23 08:46] LABS: Slide Review Reflex Yes
[2022-05-23 08:47] LABS: Slide Review Acceptable Review (Acceptable)
[2022-05-23 09:43] LABS: SARS PCR* Negative SARS-CoV-2 (Negative)
[2022-05-23] MEDS: OXYTOCIN 30 unit/500 ML in NS 30 UNIT/500 ML BAG IVPB (09:50)
--- NOTE | 2022-05-23 10:44 | PC.NURSE ---
FHR Monitor- tracing not recorded on paper from ~[id number]. OBIX recording tracing during this time
[2022-05-23] MEDS: AMPICILLIN 1 GM in 0.9 % SODIUM CHLORIDE Mini-bag 100 ML IVPB (12:46)
[2022-05-23] MEDS: ROPIVACAINE 0.2% 100 ml 100 ML 12 MG EPIDURAL (16:01)
--- NOTE | 2022-05-23 16:05 | P.ANBPRC_ITS ---
[facility] Medical History (Updated 03/13/22 @ 10:36 by Nga Macedo CNM) Chlamydia infection affecting Frequent UTI History of anemia Hyperemesis complicating , antepartum Surgical History (Updated 10/01/21 @ 20:58 by Albania Suárez CNM) H/O laparoscopy History of cholecystectomy Family History (Updated 10/01/21 @ 20:59 by Albania Suárez CNM) Maternal Grandfather Liver cancer Paternal Grandfather Diabetes Paternal Grandmother Diabetes Social History Smoking Status: Never smoker Second hand tobacco smoke exposure: No How often do you have a drink containing alcohol: never AUDIT-C Alcohol total score: 0 Non-prescribed substance use: denies use Little interest or pleasure in doing things: not at all Feeling down, depressed, or hopeless: not at all Meds Home Medications and Allergies Home Medications Medication Instructions Recorded Confirmed Type prenat.vits,irina,[id number] 1 tab PO QDAY 09/20/21 05/23/22 History Allergies Allergy/AdvReac Type Severity Reaction Status Date / Time No Known Drug Allergies Allergy Verified 05/23/22 07:21 Results Labs Labs: Laboratory Results - last 24 hr 05/23/22 05/23/22 05/23/22 07:56 07:59 08:14 WBC 8.45 RBC 3.88 L Hgb 10.6 L Hct 32.7 L MCV 84 MCH 27 MCHC 32 RDW Coeff of Brittany Plt Count 242 Neut % (Auto) 72.1 H Lymph % (Auto) 20.7 [place] % (Auto) 6.2 Eos % (Auto) 0.6 Baso % (Auto) 0.2 Neut # (Auto) 6.10 Lymph # (Auto) 1.75 [place] # (Auto) 0.50 Eos # (Auto) 0.05 Baso # (Auto) 0.02 Diff Slide Review Acceptable Review SARS-CoV-2 (PCR) Negative SARS-CoV-2 Blood Type O Positive Antibody Screen NEGATIVE Vital Signs Vital Signs: Last Vital Signs Temp 98.4 F 05/23/22 10:59 Pulse 76 05/23/22 16:01 Resp 18 05/23/22 07:15 BP 129/76 05/23/22 16:01 Pulse Ox 100 03/21/23 16:03 Weight: 75.6 kg Height: 157.48 cm Anesthesia Procedures Epidural Insertion Patient Location: OB Start Time: 15:30 Stop Time: 16:30 Start Date: 05/23/22 Stop Date: 05/23/22 Reason for Block: procedure for pain Patient Position: sitting Performed By: Rex Gutierrez Preanesthetic Checklist: IV checked, risks and benefits discussed, surgical consent, monitors and equipment checked, pre-op evaluation, timeout performed and anesthesia consent Prep: chlorhexidine gluconate Monitoring: blood pressure monitoring, continuous pulse oximetry and heart rate Approach: midline Vertebral Space: lumbar (1-5) Epidural Technique: LANE saline Needle Type: Tuohy needle Injection Technique: continuous catheter Needle gauge: 17 Needle Length (cm): 10 cm Needle Insertion Depth (cm): 6 Catheter Gauge: 19 Catheter Type: multi-orifice Catheter at skin depth (cm): 12 Test Dose Result: negative and lidocaine 1.5% with epinephrine 1 to 200,000
[2022-05-23] MEDS: miSOPROStoL 25 MCG/0.25 TABLET 100 MCG VAGINAL (16:50)
--- NOTE | 2022-05-23 17:30 | W.PM.OBVAGDE ---
OB Procedure Vag Delivery Mother Details Mother Details: The patient is a 26 year-old, 2, Para 1, admitted on 05/23/22 at 41.2 Days gestation. : 2 Para: 2 Weeks Gestation: 41.2 Admission Date: 05/23/22 Additional Details Amniotic Membrane Status: SROM (at delivery) Amniotic Membrane Rupture Date: 05/23/22 Amniotic Membrane Rupture Time: 16:50 Amniotic Membrane Fluid Description: Clear Analgesia/Anesthesia Type: Epidural Waterbirth: No Pitcoin: Yes Intrapartal Events: Labor Induction and Excessive Bleeding (Noted after delivery, pitocin and cytotec given, placenta delivered and bleeding slowed) Induction Method: per pitocin protocol Labor Onset: 15:30 Complete: 16:03 Pushin:45 Heart: heart tones during second stage were 130s, audible decel to 60s noted as was Delivery Details Delivery Date: 05/23/22 Delivery Time: 16:50 Route of delivery: Gender: Female Viability: Alive; Heart Rate Present Position at Delivery: OA Delivery Details: Lauren presented for am IOL for . Ctx became intense, and she requested an epidural. SVE at that time noted to be 4 cm. Shortly after epidural was placed, she c/o increasing pressure, and she was noted to be complete per RN. CNM unavailable as she was in another delivery. Lauren labored down until CNM presented at bedside. Decision made to start pushing with quick descent noted. At 1650 a viable? female infant delivered in vertex OA presentation over intact perineum via spontaneous vaginal?delivery. ? was placed on maternal abdomen. ?At that time brisk bleeding was noted. Pitocin started and cytotec placed rectally. Brisk bleeding continued and TXA and Methergine were called for. Decision made to clamp and cut cord to assess placenta. Cord was clamped and cut after a about a minute delay.? weight pending. ? 9 at 1 minute and 9 at 5 minutes. ?Shoulder dystocia: no. ?Nuchal cord: no. Gentle traction applied to cord, w/ Lauren pushing, and placenta noted to be delivering. Placenta delivered spontaneously and complete at 1656 with a 3 vessel cord. Brisk bleeding resolved at that time. FF per RN. Methergine and TXA held at this time. Mother and were stable after?delivery. Lacerations:? none Blood loss: 200 mL. Blood loss measurement type: QBL? Sponge and needles counts are correct. 1 Minute Interval Total Score: 9 5 Minute Interval Total Score: 9 Additional Details Shoulder Dystocia: No Placenta Delivery Time: 16:56 Placental Delivery Description: Spontaneous Procedure Done: Global Blood Loss: 200 Laceration: None Blood Loss Measurement Type: QBL Bakri Used: No Sponge/Need Count Correct: Yes Cord Vessel Description: 3 Vessels Event Summary Status: Mother and infant were stable after delivery. Disposition: floor
[2022-05-23] MEDS: ACETAMINOPHEN 500 MG TABLET 1000 MG PO (21:28)
[2022-05-23] MEDS: IBUPROFEN 600 MG TABLET PO (23:37)
[2022-05-24 01:03] VITALS: BP 116/75; PULSE 69; RESP 18; TEMP 37.1; O2SAT 98
[2022-05-24 04:08] VITALS: BP 112/73; PULSE 67; RESP 16; TEMP 36.6; O2SAT 98
[2022-05-24] MEDS: ACETAMINOPHEN 500 MG TABLET 1000 MG PO ×2 (04:51→11:04)
[2022-05-24 07:16] LABS: Hemoglobin* 9.7 gm/dL (12.0-16.0)
[2022-05-24 08:15] VITALS: BP 106/70; PULSE 62; RESP 18; TEMP 36.6; O2SAT 99
[2022-05-24] MEDS: IBUPROFEN 600 MG TABLET PO ×2 (08:17→15:00)
--- NOTE | 2022-05-24 08:17 | P.DS_ITS ---
DS: Providers Provider Date Seen: 05/24/22 Date of admission: 05/23/22 06:57 Primary care physician: Not a Local Provider Admitting Clinician: Albania Suárez CNM Attending Physician on discharge: Albania Suárez CNM Date of Discharge: 05/24/22 DS: Diagnosis Discharge Diagnosis (1) examination following vaginal delivery: Status: Acute (2) Lactating mother: Status: Acute Exam Narrative: Exam Narrative: Discharge Examination? GENERAL APPEARANCE:? normal affect, alert, no distress? MOOD:? appropriate? CHEST:? clear to auscultation and percussion? HEART:? regular rate and rhythm? ABDOMEN:? soft, non-tender the uterine fundus is 2 cm Below Umbilicus, Midline and is appropriate for the stage of recovery. ? PERINEUM:? mild edema of the perineum. EXTREMITIES:? normal and no edema? Patient has no complaints? No active bleeding?? Doing well? She is requesting discharge home.? Const: Vital Signs, click to edit/add: Vital Signs - 24 hr 05/23/22 10:59 05/23/22 11:55 05/23/22 13:12 Temperature 98.4 F Pulse Rate 71 75 75 Pulse Rate [Pulse Oximeter] Respiratory Rate Blood Pressure 106/64 117/60 110/61 Blood Pressure [Le ft Arm] Pulse Oximetry Oxygen Delivery Me thod 05/23/22 14:03 05/23/22 14:58 05/23/22 15:47 Temperature Pulse Rate 68 60 Pulse Rate [Pulse Oximeter] Respiratory Rate Blood Pressure 110/66 129/77 Blood Pressure [Le ft Arm] Pulse Oximetry 79 L Oxygen Delivery Ut thod 05/23/22 15:48 05/23/22 15:53 05/23/22 15:54 Temperature Pulse Rate 65 Pulse Rate [Pulse Oximeter] Respiratory Rate Blood Pressure 122/68 Blood Pressure [Le ft Arm] Pulse Oximetry 99 100 Oxygen Delivery Me thod 05/23/22 15:57 05/23/22 15:58 05/23/22 16:01 Temperature Pulse Rate 70 76 Pulse Rate [Pulse Oximeter] Respiratory Rate Blood Pressure 132/82 129/76 Blood Pressure [Le ft Arm] Pulse Oximetry 100 Oxygen Delivery Me thod 05/23/22 16:03 05/23/22 16:08 05/23/22 16:11 Temperature Pulse Rate 67 Pulse Rate [Pulse Oximeter] Respiratory Rate Blood Pressure 115/56 L Blood Pressure [Le ft Arm] Pulse Oximetry 100 100 Oxygen Delivery Me thod 05/23/22 16:13 05/23/22 16:16 05/23/22 16:18 Temperature Pulse Rate 67 Pulse Rate [Pulse Oximeter] Respiratory Rate Blood Pressure 106/60 Blood Pressure [Le ft Arm] Pulse Oximetry 100 100 Oxygen Delivery Me thod 05/23/22 16:22 05/23/22 16:23 05/23/22 16:28 Temperature Pulse Rate 67 Pulse Rate [Pulse Oximeter] Respiratory Rate Blood Pressure 115/68 Blood Pressure [Le ft Arm] Pulse Oximetry 99 100 Oxygen Delivery Me thod 05/23/22 16:33 05/23/22 16:38 05/23/22 16:39 Temperature Pulse Rate 67 Pulse Rate [Pulse Oximeter] Respiratory Rate Blood Pressure 115/63 Blood Pressure [Le ft Arm] Pulse Oximetry 99 99 Oxygen Delivery Me thod 05/23/22 16:43 05/23/22 16:48 05/23/22 16:53 Temperature Pulse Rate Pulse Rate [Pulse Oximeter] Respiratory Rate Blood Pressure Blood Pressure [Le ft Arm] Pulse Oximetry 99 100 100 Oxygen Delivery Me thod 05/23/22 16:54 05/23/22 16:58 05/23/22 16:59 Temperature Pulse Rate 72 64 73 Pulse Rate [Pulse Oximeter] Respiratory Rate Blood Pressure 112/64 117/68 122/64 Blood Pressure [Le ft Arm] Pulse Oximetry 96 Oxygen Delivery Me thod 05/23/22 17:03 05/23/22 17:11 05/23/22 17:25 Temperature Pulse Rate 70 61 Pulse Rate [Pulse Oximeter] Respiratory Rate Blood Pressure 123/62 111/80 Blood Pressure [Le ft Arm] Pulse Oximetry 99 Oxygen Delivery Me thod 05/23/22 17:40 05/23/22 17:54 05/23/22 18:10 Temperature Pulse Rate 61 63 53 L Pulse Rate [Pulse Oximeter] Respiratory Rate Blood Pressure 131/61 136/60 106/56 L Blood Pressure [Le ft Arm] Pulse Oximetry Oxygen Delivery Me thod 05/23/22 18:25 05/23/22 18:39 05/23/22 18:54 Temperature Pulse Rate 55 L 54 L 51 L Pulse Rate [Pulse Oximeter] Respiratory Rate Blood Pressure 118/58 L 133/74 131/76 Blood Pressure [Le ft Arm] Pulse Oximetry Oxygen Delivery Me thod 05/23/22 21:30 05/24/22 01:03 05/24/22 04:08 Temperature 98.6 F 98.7 F 97.9 F Pulse Rate Pulse Rate [Pulse Oximeter] 73 69 67 Respiratory Rate 18 18 16 Blood Pressure Blood Pressure [Le ft Arm] 129/79 116/75 112/73 Pulse Oximetry 98 98 98 Oxygen Delivery Me thod Room Air Room Air Room Air OB - DS: Summary Hospital Course Hospital Course: The patient is a 26 year old G 2 now P 2 at 41.1 weeks gestation that was admitted to the Center on 05/23/22 for active labor. She had an uncomplicated vaginal delivery. She delivered a viable female infant. She is breast feeding and states that it is going well. the patient has done well. Her pain is well controlled with current medications.? She has no new complaints.? Vitals have been stable. She has remained afebrile. She is voiding without difficulty. She is passing gas and has had a bowel movement. She is ambulating and denies any dizziness. She is unsure what she is planning for control.?Discussed the risks associated with closely space pregnancies and control options that are compatible with .?? Peripartum Data Infant delivery method: Vaginal Laceration description: None Episiotomy description: None complications: none Infant Gender: Female Infant Discharge Plan: Home Status at Discharge Functional status at discharge: independent ambulation Overall status at discharge: patient is progressing back to baseline Time Spent with Patient Time attestation: Total time spent providing and/or coordinating discharge services: Discharge Plan Discharge Disposition: Home, Self-Care Date of Admission: 05/23/22 06:57 Attending Provider on Discharge: Brenda Cornejo Primary Care Provider: Provider,Not a Local Condition: Stable Anticipated Discharge Date/Time: 05/24/22 11:00 Discharge Medications: New docusate sodium 100 mg Capsule 100 mg PO DAILY Qty: 60 0RF ibuprofen 600 mg Tablet 600 mg PO Q6H PRNQty: 60 0RF Continued prenat.vits,irina,[id number] Tablet 1 tab PO QDAY ferrous sulfate 324 mg (65 mg iron) tablet,delayed release (DR/EC) 324 mg PO QDAY Qty: 90 0RF Discontinued ondansetron HCl 4 mg tablet 4 mg PO Q8H PRN (Reason: nausea and vomiting) Qty: 30 2RF valacyclovir [Valtrex] 500 mg tablet 500 mg PO BID Qty: 60 1RF Hold Instructions: not taking yet. to start at 36 weeks Discharge Orders: Discharge Order (Routine); Ordered 05/24/22 Ordered By: Brenda Cornejo Additional Instructions: Discharge instructions were reviewed with the patient including signs and symptoms of infection and home going medications.? Lifting Restrictions: 10 pounds for 6? weeks? ?? Do not drive while taking narcotic pain meds.? Off Work or School for 6 weeks.? ?? Symptoms to report to doctor:? -Bleeding that saturates more than one pad per hour? -Passing clots larger than the size of a golf ball? -Pain not relieved by prescribed medication? -Fever above 100.4 degrees Fahrenheit? -A foul vaginal odor? -Difficulty in emotions, mood and functions? -Thoughts of hurting yourself and/or ? -Painful, reddened area in your breast? -Any drainage, redness or tenderness in your IV/epidural site? -Severe headache that doesn't improve after taking medications? -Changes in vision, including temporary loss of vision, blurred vision, and/or light sensitivity? -Upper abdominal pain (usually under ribs on the right side)? -Decrease in urination or painful, frequent urinating? -Chest pain? -Shortness of breath? -Tenderness or pain with redness and/swelling in the calf(s) of your leg? ?? Follow Up in clinic in 2 and 6 weeks.? ?? consultation services are available to all mothers and babies for the first year after delivery.? To make an appointment, please call [phone].? Activity Level: Activity as Tolerated Discharge Diet: Regular Follow Up Appointments: [facility] [Provider Group] Provider,Not a Local [Primary Care Provider] - Forms: [employer] Info Instructions
[2022-05-24] MEDS: DOCUSATE SODIUM 100 MG CAPSULE PO (09:18)
[2022-05-24 11:50] VITALS: BP 108/74; PULSE 67; RESP 16; TEMP 36.3
[2022-05-24] MEDS: MEASLES,MUMPS,RUBELLA VACC/PF 1 DOSE INJ 1 EACH SUBCUT (14:30)
[2022-05-24 15:46] VITALS: BP 116/69; PULSE 71; RESP 16; TEMP 36.6
[2022-05-24] MEDS: LANOLIN CREAM 1 APPLIC TOPICAL (15:46)
== END 2022-05-24 19:20 | disposition home or self-care (01) | DRG 807 ==
PROVIDERS: Admitting Provider Advanced Practice Midwife; Visit Provider Advanced Practice Midwife
DX: O48.0 Post-term pregnancy (principal); Z37.0 Single live birth; O99.824 Streptococcus B carrier state complicating childbirth; O99.02 Anemia complicating childbirth; D64.9 Anemia, unspecified; Z87.42 Personal history of other diseases of the female genital tract; Z3A.41 41 weeks gestation of pregnancy
CPT/HCPCS: 01967; 36415; 85018; 85025; 86850; 86900; 86901; 87635; A9270; J0290; J2370; J2795; J7120; S0020

== ENCOUNTER 2023-04-09 12:49 | Emergency (ER) | payer MEDICAID, SELFPAY ==
[2023-04-09 12:54] VITALS: BP 124/77; PULSE 111; RESP 18; TEMP 36.5; O2SAT 98; BMI 32.0
--- NOTE | 2023-04-09 14:28 | ED.NAVMDI ---
HPI - Nausea/Vomiting/Diarrhea General Date Seen: 04/09/23 Chief complaint: Nausea/Vomiting Stated complaint: 6 weeks , needs fluids Time Seen by Provider: 04/09/23 14:20 Source: patient and family Mode of arrival: ambulatory Limitations: no limitations History of Present Illness HPI Narrative: Patient is a at 6 weeks gestation who presents here with nausea vomiting she has vomited up approximately 10 times, has had no diarrhea, she says the baby she does not really feel it, as she is only 6 weeks, does not really have abdominal pain with this, but some tightness of her abdominal muscles. She called her OB Clinic which she goes to in length only recommended she come to the ER, she will get set up for fluids in the future. Denies any fevers chills sweats dysuria frequency, unfortunately in her last she necessitated a PICC line and daily IV fluids. She found that all medications did not work but does remember using Reglan. MD elicited complaint: nausea and vomiting Associated nausea: Yes Related Data Home Medications Medication Instructions Recorded Confirmed prenat.vits,irina,[id number] 1 tab PO QDAY 09/20/21 04/09/23 Previous Rx's Medication Instructions Recorded cephalexin 500 mg capsule 500 mg PO BID #10 caps 04/09/23 Allergies Allergy/AdvReac Type Severity Reaction Status Date / Time No Known Drug Allergies Allergy Verified 04/09/23 13:01 Review of Systems Status of ROS: Reports: 10 or more systems reviewed and unremarkable except as noted in History and below GI: Reports: nausea PFSH PFSH Medical History Anemia affecting , antepartum ?O99.019 - Anemia complicating , unspecified trimester (ICD-10) Hyperemesis complicating , antepartum ?O21.0 - Mild hyperemesis gravidarum (ICD-10) History of anemia ?Z86.2 - Personal history of diseases of the blood and blood-forming organs and certain disorders involving the immune mechanism (ICD-10) Frequent UTI ?N39.0 - Urinary tract infection, site not specified (ICD-10) Chlamydia infection affecting ?O98.819 - Other maternal infectious and parasitic diseases complicating , unspecified trimester (ICD-10) ?A74.9 - Chlamydial infection, unspecified (ICD-10) Surgical History History of cholecystectomy ?Z90.49 - Acquired absence of other specified parts of digestive tract (ICD-10) H/O laparoscopy ?Z98.890 - Other specified postprocedural states (ICD-10) Family History Maternal Grandfather Liver cancer Paternal Grandfather Diabetes Paternal Grandmother Diabetes Social History Smoking Status: Never smoker Do you use any of these nicotine containing products: None Second hand tobacco smoke exposure: No How often do you have a drink containing alcohol: never AUDIT-C Alcohol total score: 0 Non-prescribed substance use: denies use Little interest or pleasure in doing things: not at all Feeling down, depressed, or hopeless: not at all Exam Narrative: Exam Narrative: Patient is seen in room 6 she is in no apparent distress, scrolling on her phone, her pupils are equal round reactive to light there is no scleral icterus redness or TMs are normal oropharynx is normal, there is no adenopathy in her anterior posterior chains her neck is supple full range of motion is elicited. Her chest is good air entry bilaterally no wheezing crackles noted, she has a nongravid abdomen, with no tenderness at all on palpation, there is no peritoneal signs, no CVA tenderness she moves all extremities independently and well. Skin reveals no petechiae rashes. 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 Vital Signs Vital signs: Initial Vital Signs Temperature 97.7 F 04/09/23 12:54 Temperature Source Temporal Artery Scan 04/09/23 12:54 Pulse Rate 111 H 04/09/23 12:54 Respiratory Rate 18 04/09/23 12:54 Blood Pressure 124/77 04/09/23 12:54 Blood Pressure Mean 92 04/09/23 12:54 Blood Pressure Position Sitting 04/09/23 12:54 Pulse Oximetry 98 04/09/23 12:54 Oxygen Delivery Method Room Air 04/09/23 12:54 Vital Signs Temperature 97.7 F 04/09/23 12:54 Pulse Rate 111 H 04/09/23 12:54 Respiratory Rate 18 04/09/23 12:54 Blood Pressure 124/77 04/09/23 12:54 Pulse Oximetry 98 04/09/23 12:54 Oxygen Delivery Method Room Air 04/09/23 12:54 Temperature 97.7 F 04/09/23 12:54 Pulse Rate 82 04/09/23 16:00 Respiratory Rate 18 04/09/23 16:00 Blood Pressure 105/61 04/09/23 16:00 Pulse Oximetry 100 04/09/23 16:00 Oxygen Delivery Method Room Air 04/09/23 16:00 Medications Administered Medications: Discontinued Medications Generic Name Dose Route Start Last Admin Trade Name Freq PRN Reason Stop Dose Admin Diphenhydramine HCl 25 mg 04/09/23 14:25 04/09/23 14:45 Diphenhydramine 50 Mg/Ml Inj IVP 04/09/23 14:26 25 mg ONCE ONE Administration Sodium Chloride 1,000 mls @ 1,000 mls/hr 04/09/23 14:30 04/09/23 15:48 0.9 % Sodium Chloride 1000 Ml IV 04/09/23 15:29 Infused .Q1H JOEY Infusion Sodium Chloride 1,000 mls @ 1,000 mls/hr 04/09/23 14:30 04/09/23 15:55 0.9 % Sodium Chloride 1000 Ml IV 04/09/23 15:29 1,000 mls/hr .Q1H JOEY Administration Metoclopramide HCl 10 mg 04/09/23 14:25 04/09/23 14:45 Metoclopramide Hcl 5 Mg/Ml Inj IVP 04/09/23 14:26 10 mg ONCE ONE Administration MDM - Nausea/Vomiting/Diarrhea MDM Narrative Medical decision making narrative: Differential diagnosis includes but is not limited to viral gastroenteritis, drug food poisoning, pyloric stenosis, gastritis, pancreatitis, hepatitis, cholecystitis, appendicitis, bowel obstruction, hyperemesis, cyclic vomiting syndrome, bulimia nervosa, migraine headache, motion sickness and medication side effect. These include the life threatening complications of appendicitis, drug food poisoning and bowel obstruction. This does seem like more hyperemesis, we will go ahead and get some labs, start an IV give her couple L of fluids I will use some Reglan which is safe in , especially in the 1st trimester. With a little bit of Benadryl. I warned her about possible side effects with this Medical Records Attestation: I reviewed the patient's medical records. Lab Data Attestation: I reviewed the patient's lab results. Labs: Lab Results 04/09/23 04/09/23 Range/Units 15:11 15:30 Sodium 136 (135-149) mmol/L Potassium 3.3 L (3.6-5.1) mmol/L Chloride 102 (96-114) mmol/L Carbon Dioxide 20 (20-32) mmol/L Anion Gap 14 (7-15) mEq/L BUN 8 (5-24) mg/dL Creatinine 0.5 (0.5-1.5) mg/dL Estimated Creat Clear 136.04 Estimated GFR 133 ml/min Glucose 84 (60-115) mg/dL Calcium 8.7 (8.4-10.6) mg/dL Urine Color Dark yellow (Yellow) Urine Appearance Slightly Cloudy A (Clear) Urine pH 6.0 (5.0-8.5) Ur Specific [place] 1.025 (1.000-1.030) Urine Protein 1+ A (Negative) Urine Glucose (UA) Negative (Negative) Urine Ketones 4+ A (Negative) Urine Blood Negative (Negative) Urine Nitrite Negative (Negative) Urine Bilirubin 2+ A (Negative) Urine Urobilinogen 4.0 A (0.2-1.0) Ur Leukocyte Esterase 1+ A (Negative) Urine RBC 10-25 A (0-2) Urine WBC 10-25 A (0-5) Ur Squamous Epith Cells Many A (None-Few) Urine Bacteria Many A (None) Electrolytes look okay with a slightly low potassium, there is evidence of a UTI and I would recommend treatment given she is . Keflex would be a good treatment for this. Discharge Plan Discharge Clinical Impression: Urinary tract infection, Hyperemesis gravidarum Patient Disposition: Home w/ Parent or Adult Condition: Stable Instructions: Hyperemesis Gravidarum (ED), Urinary Tract Infection in (ED) Additional Instructions: Home rest follow-up with your community relations police lieutenant, medications as directed per them, take the medications as it was urinary tract infection on your urinalysis Activity Level: Light activity Prescriptions: New cephalexin 500 mg capsule 500 mg PO BID Qty: 10 0RF No Action prenat.vits,irina,[id number] Tablet 1 tab PO QDAY Hold Instructions: Order Change Follow Up/Referrals: Provider,Not a Local [Primary Care Provider] - Stand Alone Forms: [employer] Info Instructions
[2023-04-09] MEDS: 0.9 % SODIUM CHLORIDE 1000 ml 1,000 ML IV ×2 (14:43→15:55)
[2023-04-09] MEDS: diphenhydrAMINE 50 MG/ML inj 25 MG IVP (14:45)
[2023-04-09] MEDS: METOCLOPRAMIDE HCL 5 MG/ML INJ 10 MG IVP (14:45)
[2023-04-09 15:32] LABS: Chloride* 102 mmol/L (96-114); Potassium* 3.3 mmol/L (3.6-5.1); Sodium* 136 mmol/L (135-149)
[2023-04-09 15:35] LABS: Creatinine* 0.5 mg/dL (0.5-1.5); Est. Creatinine Clearance* 136.04; Estimated Glomerular Filt Rate 133 ml/min
[2023-04-09 15:36] LABS: Anion Gap 14 mEq/L (7-15); Blood Urea Nitrogen* 8 mg/dL (5-24); Calcium* 8.7 mg/dL (8.4-10.6); Carbon Dioxide* 20 mmol/L (20-32); Glucose* 84 mg/dL (60-115)
[2023-04-09 16:00] VITALS: BP 105/61; PULSE 82; RESP 18; O2SAT 100
[2023-04-09 16:02] LABS: Appearance Urine Slightly Cloudy (Clear); Bilirubin Urine 2+ (Negative); Blood Urine Negative (Negative); Color Urine Dark yellow (Yellow); Glucose Urine Negative (Negative); Ketones Urine 4+ (Negative); Leukocyte Esterase Urine 1+ (Negative); Nitrite Urine Negative (Negative); Protein Urine 1+ (Negative); Specific Gravity Urine 1.025 (1.000-1.030)
[2023-04-09 16:17] LABS: Bacteria Urine Many; Squamous Epithelial Cell Urine Many (None-Few)
== END 2023-04-09 16:50 | disposition home or self-care (01) ==
PROVIDERS: Emergency Provider Family Medicine
DX: O21.0 Mild hyperemesis gravidarum (principal); Z3A.01 Less than 8 weeks gestation of pregnancy; N39.0 Urinary tract infection, site not specified
CPT/HCPCS: 36415; 80048; 81001; 87086; 99283; 99284; J1200; J2765; J7030

== ENCOUNTER 2023-04-13 14:13 | Outpatient (CLI) | payer MEDICAID, SELFPAY | END 2023-04-13 14:14 | disposition home or self-care (01) | LOC: NFLDREF 14:14 | PROVIDERS: Visit Provider Advanced Practice Midwife | DX: O21.0 Mild hyperemesis gravidarum (principal); Z3A.01 Less than 8 weeks gestation of pregnancy | CPT/HCPCS: 80053; 87086 ==

== ENCOUNTER 2023-04-24 11:57 | Outpatient (CLI) | payer MEDICAID, SELFPAY ==
--- NOTE | 2023-04-24 12:15 | US_ITS ---
Final Report Patient: HERLINDA ZAPATA Facility:?[facility] Patient ID:?[id number] Site Patient ID:?[id number]. Site :?1997 Study:?US OB Pelvis -04/24/2023 12:45:02 PM Ordering Physician:EVONNE FOY Final Report: INDICATION: First trimester scan, establish dates. COMPARISON: None. TECHNIQUE: Real-time esparza-scale imaging of the pelvis was performed. FINDINGS: Intrauterine gestational sac containing a pole. heart rate 169 beats per minute. [place]-rump length 2.1 cm with sonographic age 8 weeks 5 days and sonographic due date 11/29/2023. Multiple umbilical cord cysts are present measuring up to 3.4 millimeters. Yolk sac is normal measuring 4.3 millimeters. No subchorionic hemorrhage. Corpus luteal cyst right ovary measuring 1.4 cm. Unremarkable left ovary. No pelvic free fluid. Mild edema appears to be associated with the pole thoracoabdominal region. IMPRESSION: Single living IUP with sonographic gestational age 8 weeks 5 days and sonographic due date 11/29/2023. Multiple umbilical cord cysts are present along with suggestion of thoraco abdominal wall edema. Follow-up ultrasound in 2 weeks recommended along with consideration of NT/genetic testing. Dictated by Jaquan Gaspar MD @ 04/25/2023 6:05:11 AM (Electronic Signature)
== END 2023-04-24 11:58 | disposition home or self-care (01) ==
LOC: US 11:57
PROVIDERS: Visit Provider Advanced Practice Midwife
DX: Z34.91 Encounter for supervision of normal pregnancy, unspecified, first trimester (principal); O43.191 Other malformation of placenta, first trimester; Z3A.08 8 weeks gestation of pregnancy
CPT/HCPCS: 76817; 87086; 87491; 87591

== ENCOUNTER 2023-04-27 14:47 | Outpatient (CLI) | payer MEDICAID, SELFPAY | END 2023-04-27 14:48 | disposition home or self-care (01) | LOC: NFLDREF 05-09 11:59 | PROVIDERS: Visit Provider Advanced Practice Midwife | DX: Z34.91 Encounter for supervision of normal pregnancy, unspecified, first trimester (principal); O21.9 Vomiting of pregnancy, unspecified; R74.8 Abnormal levels of other serum enzymes; Z3A.08 8 weeks gestation of pregnancy | CPT/HCPCS: 84450; 84460; 86592; 86703; 86704; 86706; 86762; 86787; 86803; 86850; 86900; 86901; 87340 ==

== ENCOUNTER 2023-05-02 13:23 | Outpatient (CLI) | payer MEDICAID, SELFPAY ==
--- NOTE | 2023-05-02 16:00 | US_ITS ---
Patient: HERLINDA ZAPATA Facility:?[facility] Patient ID:?[id number] Site Patient ID:?[id number]. Site :?1995 Study:?US-Abdomen RUQ-05/02/2023 3:31:20 PM Ordering Physician:CARLITA WALDRON Final Report: INDICATION: Abnormal serum enzymes TECHNIQUE: Conventional two-dimensional esparza-scale ultrasound of the right upper quadrant. COMPARISON: Right upper quadrant ultrasound of 10/19/2021 FINDINGS: The gallbladder has been removed. No biliary ductal dilation is evident. The common bile duct measures 8 mm. There is questionable nodularity of the liver edge, raising concern for cirrhosis. The pancreas is within normal limits. The right kidney is unremarkable. The visualized portions of the abdominal aorta and inferior vena cava are negative. IMPRESSION: 1. Question cirrhosis. 2. Fatty post cholecystectomy. Dictated by Javad Gonzalez MD @ 05/03/2023 8:14:08 AM Signed by:?Javad Gonzalez MD @05/03/2023 8:14:08 AM (Electronic Signature)
== END 2023-05-02 16:30 | disposition home or self-care (01) ==
LOC: OP CLINIC 13:23
PROVIDERS: Visit Provider Advanced Practice Midwife
DX: R74.8 Abnormal levels of other serum enzymes (principal)
CPT/HCPCS: 76705

== ENCOUNTER 2023-05-02 13:30 | Outpatient (RCR) | payer MEDICAID, SELFPAY ==
[2023-04-19 13:00] VITALS: BP 109/72; PULSE 76; RESP 16; TEMP 36.8; O2SAT 98
[2023-04-19] MEDS: LACTATED RINGERS 1000 ML 1,000 ML IV (13:18)
[2023-04-20 13:57] VITALS: BP 106/64; PULSE 81; RESP 18; TEMP 36.7; O2SAT 96
[2023-04-20] MEDS: LACTATED RINGERS 1000 ML 1,000 ML IV (14:08)
[2023-04-20] MEDS: SODIUM CHLORIDE 0.9 % (FLUSH) 10 ML SYRINGE IVF (14:09)
[2023-04-26 13:03] VITALS: BP 113/73; PULSE 87; RESP 16; TEMP 36.6; O2SAT 98
[2023-04-26] MEDS: MULTIPLE VITAMINS INJECTION 10 ML in LACTATED RINGERS 1000 ML 1,000 ML 1010 ML IV (13:12)
[2023-04-26] MEDS: SODIUM CHLORIDE 0.9 % (FLUSH) 10 ML SYRINGE IVF (13:17)
--- NOTE | 2023-04-26 13:18 | ONC.NURNOTE ---
Per pharmacy, okay to run LR with multivitamins over an hour.
[2023-04-27 13:01] VITALS: BP 130/76; PULSE 86; RESP 17; TEMP 36.3; O2SAT 97
[2023-04-27] MEDS: MULTIPLE VITAMINS INJECTION 10 ML in LACTATED RINGERS 1000 ML 1,000 ML 1010 ML IV (13:22)
[2023-04-27] MEDS: SODIUM CHLORIDE 0.9 % (FLUSH) 10 ML SYRINGE IVF (13:22)
[2023-04-30 11:00] VITALS: BP 105/66; PULSE 79; RESP 16; TEMP 36.4; O2SAT 99
[2023-04-30] MEDS: SODIUM CHLORIDE 0.9 % (FLUSH) 10 ML SYRINGE IVF (11:00)
[2023-04-30] MEDS: MULTIPLE VITAMINS INJECTION 10 ML in LACTATED RINGERS 1000 ML 1,000 ML 1010 ML IV (11:26)
[2023-05-02] MEDS: MULTIPLE VITAMINS INJECTION 10 ML in LACTATED RINGERS 1000 ML 1,000 ML 1010 ML IV (13:55)
[2023-05-02 14:03] VITALS: BP 103/67; PULSE 84; RESP 16; TEMP 36.8; O2SAT 98
--- NOTE | 2023-05-03 | XR_ITS ---
Patient: HERLINDA ZAPATA Facility:?[facility] Patient ID:?[id number] Site Patient ID:?[id number] Site :?1997 Study:?XRay-Chest PICC LINE PLACEMENT-05/03/2023 8:22:43 AM Ordering Physician:DANII Final Report: Indication: PICC line placement. Technique: One view(s) of the chest. Comparison: None available. Findings: Right upper extremity PICC tip is at the superior cavoatrial junction. Normal cardiomediastinal silhouette and pulmonary vasculature. Lungs are well inflated and clear. No focal consolidation, pleural effusion or pneumothorax. No acute osseous abnormality. Impression: Right PICC tip at the superior cavoatrial junction. Dictated by Marjan Matos MD @ 05/03/2023 8:25:54 AM Signed by:?Marjan Matos MD @05/03/2023 8:25:54 AM (Electronic Signature)
--- NOTE | 2023-05-03 07:15 | US_ITS ---
Patient: HERLINDA ZAPATA Facility:?[facility] Patient ID:?[id number] Site Patient ID:?[id number]. Site :?1997 Study:?US-Extremity Right PICC-05/03/2023 8:19:12 AM Ordering Physician:?OB Final Report: Indication: PICC placement Technique: Grayscale ultrasound images of the right brachial vein. IMPRESSION: Ultrasound guidance for right arm PICC line placement. Dictated by Jaquan Gaspar MD @ 05/03/2023 9:28:23 AM Signed by:?Jaquan Gaspar MD @05/03/2023 9:28:23 AM (Electronic Signature)
[2023-05-03 07:20] VITALS: BP 111/71; PULSE 76; RESP 18; O2SAT 99
== END 2023-10-16 23:59 | disposition home or self-care (01) ==
LOC: CCIC 13:30
PROVIDERS: Visit Provider Advanced Practice Midwife
DX: O21.9 Vomiting of pregnancy, unspecified (principal); O99.019 Anemia complicating pregnancy, unspecified trimester
CPT/HCPCS: 36573; 96360; 96365; C1751; J7120

== ENCOUNTER 2023-05-03 07:00 | Outpatient (CLI) | payer MEDICAID, SELFPAY ==
[2023-05-03 07:20] VITALS: BP 111/71; PULSE 76; RESP 18; O2SAT 99
[2023-05-03] MEDS: MULTIPLE VITAMINS INJECTION 10 ML in LACTATED RINGERS 1000 ML 1,000 ML IV (09:05)
== END 2023-05-03 10:10 | disposition home or self-care (01) ==
PROVIDERS: Visit Provider Advanced Practice Midwife
DX: O21.0 Mild hyperemesis gravidarum (principal); R74.8 Abnormal levels of other serum enzymes
CPT/HCPCS: A4221; C1751

== ENCOUNTER 2023-05-14 12:52 | Outpatient (CLI) | payer MEDICAID, SELFPAY ==
--- NOTE | 2023-05-14 13:00 | US_ITS ---
Patient: HERLINDA ZAPATA Facility:?[facility] Patient ID:?[id number] Site Patient ID:?[id number]. Site :?1997 Study:?US-OB Pelvis FOLLOW UP-05/14/2023 2:44:17 PM Ordering Physician:CARLITA WALDRON Final Report: OB ULTRASOUND FOLLOWUP 05/14/2023 CLINICAL HISTORY: Followup abnormal findings on previous ultrasound. COMPARISON: 04/24/2023. FINDINGS: LMP: 02/22/2023. MARAH by LMP: 11/29/2023. GA: 11 weeks 4 days. MARAH by LMP: 11/29/2023. GA: 11 weeks 4 days. CRL: 5.6 cm, 12 weeks 2 days. MARAH: 11/24/2023. FHR: 161 bpm. GEST SAC: Appears WNL. YOLK SAC: Appears WNL. RIGHT OVARY: N/V. LEFT OVARY: N/V. IMPRESSION: Previously seen edema and umbilical cord cyst have resolved. Pankaj Wallace M.D. Body/Diagnostic Radiologist [email or web address] JANELLE/koki D& Transcribed: 9:10 am DW/Dictated by: Pankaj Wallace MD @ 05/15/2023 8:20:00 AM Signed by:?Pankaj Wallace MD @05/15/2023 9:20:19 AM (Electronic Signature)
== END 2023-05-14 12:53 | disposition home or self-care (01) ==
LOC: US 12:52
PROVIDERS: Visit Provider Advanced Practice Midwife
DX: O28.3 Abnormal ultrasonic finding on antenatal screening of mother (principal)
CPT/HCPCS: 76816; 76817

== ENCOUNTER 2023-06-28 10:26 | Outpatient (CLI) | payer MEDICAID, SELFPAY | END 2023-06-28 10:27 | disposition home or self-care (01) | PROVIDERS: Visit Provider Advanced Practice Midwife | DX: Z34.92 Encounter for supervision of normal pregnancy, unspecified, second trimester (principal) | CPT/HCPCS: 81511; 87086 ==

== ENCOUNTER 2023-09-18 13:50 | Outpatient (CLI) | payer MEDICAID, SELFPAY | END 2023-09-18 13:51 | disposition home or self-care (01) | LOC: NFLDREF 09-21 16:59 | PROVIDERS: Visit Provider Advanced Practice Midwife | DX: O99.810 Abnormal glucose complicating pregnancy (principal); Z3A.29 29 weeks gestation of pregnancy | CPT/HCPCS: 76805; 86592 ==

== ENCOUNTER 2023-09-24 12:49 | Outpatient (CLI) | payer MEDICAID, SELFPAY ==
--- NOTE | 2023-09-24 13:00 | CRLHL7_ITS ---
For Patients: As a result of the Century Cures Act, medical imaging exams and procedure reports are released immediately into your electronic medical record. You may view this report before your referring provider. If you have questions, please contact your health care provider. INDICATION: F/U suboptimal views from anatomy scan COMPARISON: 09/18/2023 TECHNIQUE: Real-time esparza-scale imaging of the pelvis was performed. FINDINGS: Nose and lips are normal. Normal orbits. Profile unremarkable. Normal LVOT, stomach and four-chamber heart. Normal RVOT, 3VTV and 3VV. Vertex position. heart rate 131 beats per minute. Anterior placenta. Normal amniotic fluid with single deepest pocket 7.3 cm. IMPRESSION: Normal profile, face, LVOT and 3VTV views. Dictated by Jaquan Gaspar MD @ 09/25/2023 8:49:38 AM (Electronically Signed)
== END 2023-09-24 12:50 | disposition home or self-care (01) ==
LOC: US 12:50
PROVIDERS: Visit Provider Advanced Practice Midwife
DX: Z34.90 Encounter for supervision of normal pregnancy, unspecified, unspecified trimester (principal)
CPT/HCPCS: 76816

== ENCOUNTER 2023-10-04 08:11 | Outpatient (CLI) | payer MEDICAID, SELFPAY | END 2023-10-04 08:12 | disposition home or self-care (01) | LOC: NFLDREF 10-05 07:28 | PROVIDERS: Visit Provider Advanced Practice Midwife | DX: O99.810 Abnormal glucose complicating pregnancy (principal); Z3A.32 32 weeks gestation of pregnancy | CPT/HCPCS: 82951; 82952 ==

== ENCOUNTER 2023-10-31 13:05 | Outpatient (CLI) | payer MEDICAID, SELFPAY ==
[2023-11-01 14:46] LABS: Strep B DNA Probe Negative (Negative)
[2023-11-02 00:18] LABS: Strep B Susceptibility Needed? No
== END 2023-10-31 13:06 | disposition home or self-care (01) ==
PROVIDERS: Visit Provider Midwife
DX: Z34.93 Encounter for supervision of normal pregnancy, unspecified, third trimester (principal); Z3A.35 35 weeks gestation of pregnancy
CPT/HCPCS: 87081; 87653

== ENCOUNTER 2023-11-14 20:08 | Inpatient (IN) | payer MEDICAID, SELFPAY ==
[2023-11-14] VITALS (42 sets, daily range): BP systolic 107–138; BP diastolic 57–83; PULSE 63–105; RESP 16–18; TEMP 36.4–36.9; O2SAT 97–100; BMI 34.3
--- NOTE | 2023-11-14 19:26 | W.PM.LDBA ---
Subjective History of Present Illness Date Seen: 11/14/23 Narrative: Patient is being admitted to Labor and Delivery for SROM clear fluid at 1700 today. She is a 27 year old at 41 2/7 weeks gestation. Her full history and physical has not yet been completed and is included here. Patient's care began at 8 and 5/7 weeks? gestation. She is dated by first trimester US. EDC is 11/29/2023. She has had routine visits since that time, but with no care from 18-29 weeks. See problem list below.? IMAGING:??? 1st trimester: 04/24/2023-SLIUP with umbilical cysts noted Other: ?05/14/23-Previously seen edema and umbilical cord cyst have resolved Anatomy scan: 09/18/2023-normal findings, but some suboptimal views??? Others: 09/24/2023-f/u of suboptimal views??? : 3 Para: 2 Functional & Cognitive Status Patient needs assist w/ADL's: No Patient appears alert: Yes Tobacco Measurement Smoking Status: Never smoker Exposure to secondhand smoke: No Electronic Cigarettes (Vaping) Vaping Status: Never vaped Exposure to secondhand e-cigarettes?: No Illicit Drugs In the last 18 months, have you used illicit drugs or medication not prescribed to you?: No PFSH PFSH Active Problems (Updated 10/31/23 @ 13:23 by Lorena Shea CNM) (Acute) ?Z34.90 - Encounter for supervision of normal , unspecified, unspecified trimester (ICD-10)Insomnia (Acute) ?G47.00 - Insomnia, unspecified (ICD-10)Depression affecting (Acute) ?O99.340 - Other mental disorders complicating , unspecified trimester (ICD-10) ?F32.A - Depression, unspecified (ICD-10)History of inadequate care (Acute) Was not seen from 18-29 weeks ?O09.30 - Supervision of with insufficient care, unspecified trimester (ICD-10)Elevated liver enzymes (Acute) ?R74.8 - Abnormal levels of other serum enzymes (ICD-10)Nausea and vomiting during (Acute) ?O21.9 - Vomiting of , unspecified (ICD-10)Lactating mother (Acute) ?Z39.1 - Encounter for care and examination of lactating mother (ICD-10)Possible exposure to STD (Acute) ?Z20.2 - Contact with and (suspected) exposure to infections with a predominantly sexual mode of transmission (ICD-10)Endometriosis (Acute) ?N80.9 - Endometriosis, unspecified (ICD-10) Medical History Anemia affecting , antepartum ?O99.019 - Anemia complicating , unspecified trimester (ICD-10)Hyperemesis complicating , antepartum ?O21.0 - Mild hyperemesis gravidarum (ICD-10)History of anemia ?Z86.2 - Personal history of diseases of the blood and blood-forming organs and certain disorders involving the immune mechanism (ICD-10)Frequent UTI ?N39.0 - Urinary tract infection, site not specified (ICD-10)Chlamydia infection affecting ?O98.819 - Other maternal infectious and parasitic diseases complicating , unspecified trimester (ICD-10) ?A74.9 - Chlamydial infection, unspecified (ICD-10) Surgical History History of cholecystectomy ?Z90.49 - Acquired absence of other specified parts of digestive tract (ICD-10)H/O laparoscopy ?Z98.890 - Other specified postprocedural states (ICD-10) Family History Maternal Grandfather Liver cancerPaternal Grandfather DiabetesPaternal Grandmother Diabetes Social History (Updated 04/24/23 @ 15:31 by Brenda Cornejo CNM) Narrative: SOCIAL Education: some trade school, cosmetology Work: stay at home 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 () - construction Lives with: , daughter, her sister and 5 month old niece Pets: dog Abuse: Denies past/present Special Diet: Denies Ok with a blood transfusion: yes Culture or sabianism beliefs: denies RISK FACTORS Exercise Times/wk: not currently Depression/Anxiety: denies JAMES: 2 PHQ 9: 7 Seat Belt Use: Routinely Smoking: Denies past/present Alcohol/day: Denies while Caffeine: none Drug Use: Denies past/present Chicken Pox: immunization MRSA: Denies What is your current living situation?: I presently have a place to live Problems where you live: no known problems In the past 12 months, utilities in danger of being shut off: no In past 12 months, lack of transportation kept you from medical appts, meetings, work, or getting things needed for daily living: no In the past 12 mos, have been you worried that your food would run out before you had money to buy more?: never true In the past 12 mos, the food you bought just didn't last and you didn't have money to buy more?: never true Smoking Status: Never smoker Do you use any of these nicotine containing products: None Second hand tobacco smoke exposure: No How often do you have a drink containing alcohol: never AUDIT-C Alcohol total score: 0 Non-prescribed substance use: denies use Reproductive Health History Date of last pap smear: 12/05/2019 History of abnormal pap smear: No : 3 Para: 2 # of abortions spontaneous: 0 # of abortions induced: 0 History of multiple gestations: No History of pregnancies: No History of ectopic pregnancies: No History of sexually transmitted diseases: Yes (chlamydia ) Treatment for infertility: No History 3 Elective abortions 0 Para 2 Spontaneous abortions 0 Hx # Term Pregnancies 2 Ectopic pregnancies Hx # Pregnancies 0 Multiple births Number of Living Children 2 Past Pregnancies Del. Date GA/Weeks Outcome Route wt Inf Gender Labor Lgth Anesthesia Location Provider [facility] 10/27/18 40 live - full term vaginal delivery 6 lb 7 oz Female 9 hours epidural [employer] 05/23/22 41 live - full term vaginal delivery 7 lb 5 oz Female 2 hours epidural PIPER Suárez hyperemesis Delivery Date: 10/27/18 Last Updated by: [place] Suárez CNM denies /delivery complications Delivery Date: 05/23/22 Last Updated by: Etelvina Flores CNM Excessive bleeding with placenta, not PPH CNSin ptBirth Control PP:unsure Feeding Plan:breastNewborn Meds: All ok AMTSL: consents Waterbirth-would like. Consent signed 10/31/23 plan--Wants to go with the flow. Specific Issues/Plans : Marco 2 girls at home. this is a boy! # Hyperemesis, down 10lbs at NOB. Had with 1st as well. Resolved. Initiated PICC and home infusions with multivitamins at [facility]. PICC placed 05/03/23 Zofran, Reglan, and Compazine didn't work. Started Granisetron and promethazine at [facility] with Pepcid, and meclizine. Switched back to Zofran because Granisetron didn't work. Encouraged good bowel regimnet. Unable to get Multivitamins with IV due to insurance; RECOMMEND Thiamin 100 mg PO 1-3x per day. 18 weeks: Improving. Desires PICC line to be removed. # Possible cirrhosis and/or Fatty liver, Dx of hepatic steatosis Elevated liver enzymes in early . (AST 52, ALT 117) Repeated at [facility]: AST 102, ALT 199 Abdominal RUQ ultrasound: abnormal finding with possible cirrhosis and fatty liver Gastroenterology appointment 05/15/23: Recommend management of metabolic syndrome and obesity management to promote healthy weight. Labs at this visit were WNL. # Hx Chlamydia in last -consider gc/ct screen again at 37w # Hx anemia. 11.8 at [facility] # US showed tissue swelling around abdomen, multiple cord cyst Mat21 ordered: negative Repeat US: initial report edema and umbilical cyst are no longer present Consider level 2 US: Declines # No PNC from 18-29 weeks. # Failed 1hr GTT 3hr GTT: passed all values #Depression PHQ9: 13, JAMES 7: 6 at 32 weeks Sertraline 50mg RX 10/18/2023: feels stable 10/31/23-Pt did not continue sertraline after about one week. COVID: offered, declined Flu: offered, declined OB - Problem Based A/P Additional Plan (1) SROM (spontaneous rupture of membranes): Status: Acute (2) Pain during labor: Status: Acute (3) : Status: Acute Plan 27 at 37w6d gestation?? complicated by:??inadequate care, depression, hyperemesis Labor type:Spontaneous after SROM, Active labor?? Category 1 FHR pattern.??? Labor uncomplicated GBS negative? PLAN:?? 1. Routine intrapartum cares as ordered. Continue with expectant management?? 2. Monitoring per policy, intermittent?? 3. Planning unmedicated . Desires water . Consent signed. Hep C negative. Candidate for analgesia of choice.??? 4. Patient encouraged to reposition and ambulate to promote physiologic labor and .?? 5. Anticipate ? Delivery/Labor/Induction Plan Plan: expectant management OB Result Labs Blood Type: O (+) positive Rubella: immune RPR/VDLR: nonreactive GBS Status: negative HBsAG: negative OB Exam Physical Exam Vital signs: Temp Pulse Resp BP Pulse Ox 98.5 F 105 H 16 127/72 98 11/14/23 18:59 11/14/23 19:01 11/14/23 18:59 11/14/23 19:01 11/14/23 19:00 Narrative: Vitals Reviewed Constitutional:? Alert and oriented x3 HEENT:? Normocephalic, atraumatic Neck:? Supple Lungs:? Clear to auscultation bilaterally Heart:? Regular rate and rhythm, no murmur, rub or gallop Abdomen:? Soft, nontender, and gravid. Vertex by Kael's, confirmed with cervical exam. Extremities:? No edema or erythema Cervix: 3 cm/60%/-2 station/vertex/grossly ruptured clear fluid NST: 145 bpm/moderate variability/accelerations present/no decelerations/contractions q 2-4 min, palpating soft between
[2023-11-14] MEDS: LACTATED RINGERS 1000 ML 1,000 ML 999 ML IV ×2 (22:07→23:10)
--- NOTE | 2023-11-14 22:38 | PM.OBPNL ---
Subjective Date Seen: 11/14/23 Narrative: Lauren been laboring very well with Marco supporting her. She labored in the tub and has had increasing pressure and intensity of contractions prompting her desire for an epidural. Her friends are also here supporting her. Objective Exam: Objective: Constitutional: Alert and oriented x3, moderate distress, coping well Vital signs stable, see nurse documentation Abdomen: gravid, contractions palpate moderate to strong with contractions and soft between Cervix: 4 cm/80%/-1 station/vertex/very posterior still NST: 130 bpm/moderate variability noted when put on thcontinuous monitor for epidural placement/accelerations seen with continuous and audible when doing intermittent/no decelerations seen or heard/contractions q 2-3 minutes Vital Signs: Last Vital Signs Temp 97.6 F 11/14/23 21:40 Pulse 83 11/14/23 21:40 Resp 18 11/14/23 21:40 BP 120/74 11/14/23 21:40 Pulse Ox 99 11/14/23 22:34 Assessment Assessment: active labor Station: -1 Amniotic Membrane Status: SROM Status: Category l Early Childhood Worker Variability: Moderate (6-25) Monitor Accelerations: Present Monitor Decelerations: None Plan Plan: 27 at 37w6d gestation?? complicated by:??inadequate care, depression, hyperemesis Labor type:Spontaneous after SROM, Active labor?? Category 1 FHR pattern.??? Labor uncomplicated GBS negative? PLAN:?? 1. Routine intrapartum cares as ordered. Continue with expectant management?? 2. Monitoring per policy, continuous? 3. Epidural pain management per patient??? 4. Patient encouraged to reposition and ambulate to promote physiologic labor and .?? 5. Anticipate ?
[2023-11-14] MEDS: BUPIVACAINE 0.25% PF 10 ML 10 ML ML EPIDURAL (22:42)
[2023-11-14] MEDS: ROPIVACAINE 0.2% 100 ml 100 ML 12 MG EPIDURAL (22:42)
--- NOTE | 2023-11-14 22:53 | P.ANBPRC_ITS ---
[facility] Medical History Anemia affecting , antepartum ?O99.019 - Anemia complicating , unspecified trimester (ICD-10) Hyperemesis complicating , antepartum ?O21.0 - Mild hyperemesis gravidarum (ICD-10) History of anemia ?Z86.2 - Personal history of diseases of the blood and blood-forming organs and certain disorders involving the immune mechanism (ICD-10) Frequent UTI ?N39.0 - Urinary tract infection, site not specified (ICD-10) Chlamydia infection affecting ?O98.819 - Other maternal infectious and parasitic diseases complicating , unspecified trimester (ICD-10) ?A74.9 - Chlamydial infection, unspecified (ICD-10) Surgical History History of cholecystectomy ?Z90.49 - Acquired absence of other specified parts of digestive tract (ICD- 10) H/O laparoscopy ?Z98.890 - Other specified postprocedural states (ICD-10) Family History Maternal Grandfather Liver cancer Paternal Grandfather Diabetes Paternal Grandmother Diabetes Social History (Updated 04/24/23 @ 15:31 by Brenda Cornejo CNM) Narrative: SOCIAL Education: some trade school, cosmetology Work: stay at home 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 () - construction Lives with: , daughter, her sister and 5 month old niece Pets: dog Abuse: Denies past/present Special Diet: Denies Ok with a blood transfusion: yes Culture or episcopalian beliefs: denies RISK FACTORS Exercise Times/wk: not currently Depression/Anxiety: denies JAMES: 2 PHQ 9: 7 Seat Belt Use: Routinely Smoking: Denies past/present Alcohol/day: Denies while Caffeine: none Drug Use: Denies past/present Chicken Pox: immunization MRSA: Denies What is your current living situation?: I presently have a place to live Problems where you live: no known problems In the past 12 months, utilities in danger of being shut off: no In past 12 months, lack of transportation kept you from medical appts, meetings, work, or getting things needed for daily living: no In the past 12 mos, have been you worried that your food would run out before you had money to buy more?: never true In the past 12 mos, the food you bought just didn't last and you didn't have money to buy more?: never true Smoking Status: Never smoker Do you use any of these nicotine containing products: None Second hand tobacco smoke exposure: No How often do you have a drink containing alcohol: never AUDIT-C Alcohol total score: 0 Non-prescribed substance use: denies use How often does anyone, including family, friends and others, physically hurt you : never How often does anyone, including family, friends and others, insult or talk down to you: never How often does anyone, including family, friends and others, threaten you with harm: never How often does anyone, including family, friends and others, scream or curse at you: never Little interest or pleasure in doing things: nearly every day Feeling down, depressed, or hopeless: more than half the days Meds Home Medications and Allergies Home Medications ?Medication ?Instructions ?Recorded ?Confirmed ?Type docosahexaenoic acid 200 mg mg PO 05/14/23 11/12/23 History capsule ( DHA) Allergies Allergy/AdvReac Type Severity Reaction Status Date / Time No Known Drug Allergies Allergy Verified 11/12/23 08:01 Results Vital Signs Vital Signs: Last Vital Signs Temp 97.6 F 11/14/23 21:40 Pulse 71 11/14/23 22:51 Resp 18 11/14/23 21:40 BP 117/68 11/14/23 22:51 Pulse Ox 99 11/14/23 22:49 Weight: 85.139 kg Height: 157.48 cm Anesthesia Procedures Epidural Insertion Patient Location: OB Start Time: 22:20 Stop Time: 22:53 Start Date: 11/14/23 Stop Date: 11/14/23 Reason for Block: procedure for pain Patient Position: sitting Performed By: Toribio Stevenson Preanesthetic Checklist: IV checked, risks and benefits discussed, monitors and equipment checked, pre-op evaluation, timeout performed and anesthesia consent Prep: chlorhexidine gluconate Monitoring: blood pressure monitoring, continuous pulse oximetry and heart rate Approach: midline Vertebral Space: lumbar (1-5) Epidural Technique: LANE saline Needle Type: Tuohy needle Injection Technique: continuous catheter Needle gauge: 17 Needle Length (cm): 10 cm Needle Insertion Depth (cm): 6 Catheter Gauge: 19 Catheter Type: multi-orifice Catheter at skin depth (cm): 12 Test Dose Result: negative and lidocaine 1.5% with epinephrine 1 to 200,000
[2023-11-15] VITALS (38 sets, daily range): BP systolic 98–130; BP diastolic 58–82; PULSE 60–121; RESP 16; TEMP 36.3–36.8; O2SAT 97–100
[2023-11-15] MEDS: OXYTOCIN 30 unit/500 ML in NS 30 UNIT/500 ML BAG 300 UNIT IVPB (01:23)
--- NOTE | 2023-11-15 01:36 | W.PM.OBVAGDE ---
OB Procedure Vag Delivery Mother Details Mother Details: The patient is a 27 year-old, 3, Para 2, admitted on 11/14/23 at 37w6 Days gestation. Admission Date: 11/15/23 Additional Details Amniotic Membrane Status: SROM Amniotic Membrane Rupture Date: 11/14/23 Amniotic Membrane Rupture Time: 17:05 Amniotic Membrane Fluid Description: Clear Analgesia/Anesthesia Type: Epidural Waterbirth: No Pitcoin: No Intrapartal Events: None Labor Onset: 17:05 Complete: 01:05 Pushin:05 Heart: heart tones during second stage were cat 2 with variables late in 1st stage and with pushing. Moderate variability and accelerations also present. Delivery Details Delivery Date: 11/15/23 Delivery Time: 01:15 Route of delivery: Gender: Male Viability: Alive; Heart Rate Present Position at Delivery: OA Delivery Details: Patient was admitted for SROM and progressed normally. SROM noted at 1700 09/11 with clear fluid. Patient was complete at 0105 and pushing at 0105. of a viable male at 0115 with mother in semifowlers. Delivered over intact perineum via spontaneous vaginal delivery. I supported the bottom with delivery of the head, then felt for cord. One tight noted. Anterior shoulder released then Eliza, baby's Godmother, was assisted to deliver the rest of the baby. Infant was placed on maternal abdomen.? Cord was clamped and cut after a 4minute delay. Infant weight pending. APGARS were 8 at one minute and 9 at five minutes respectively. Intact placenta with a 3 vessel cord delivered spontaneously at 0120. Fundus firm. Intact perineum. QBL 200 cc. Mother and baby stable; mother plans to breastfeed. 1 Minute Interval Total Score: 8 5 Minute Interval Total Score: 9 Additional Details Shoulder Dystocia: No Placental Delivery Description: Spontaneous Procedure Done: Global Laceration: None Blood Loss Measurement Type: QBL Bakri Used: No Sponge/Need Count Correct: Yes Cord Vessel Description: 3 Vessels, Nuchal Cord, Tight and Delivered through (without complication) Event Summary Status: Mother and infant were stable after delivery. Disposition: floor
[2023-11-15] MEDS: IBUPROFEN 600 MG TABLET PO ×3 (05:52→19:31)
[2023-11-15] MEDS: ACETAMINOPHEN 500 MG TABLET 1000 MG PO ×2 (06:41→16:09)
--- NOTE | 2023-11-15 13:12 | PM.ANPOST ---
Post Anesthesia Note Post Anesthesia Note Patient seen: Inpatient Respiratory Status: adequate Cardiovascular Status: adequate Mental Status: baseline Pain: adequate Temp: baseline Anesthetic awareness: N/A Complications: none Follow care: none
[2023-11-16] VITALS: BP 111/69; PULSE 74; RESP 16; TEMP 36.6; O2SAT 97
[2023-11-16] MEDS: IBUPROFEN 600 MG TABLET PO (04:05)
[2023-11-16] MEDS: DOCUSATE SODIUM 100 MG CAPSULE PO (04:21)
[2023-11-16 06:33] LABS: Hemoglobin* 10.3 gm/dL (12.0-16.0)
--- NOTE | 2023-11-16 07:47 | P.DS_ITS ---
DS: Providers Provider Date Seen: 11/16/23 Date of admission: 11/14/23 20:08 Primary care physician: Lorena Shea CNM Admitting Clinician: Lorena Shea CNM Attending Physician on discharge: Etelvina Flores CNM DS: Diagnosis Discharge Diagnosis (1) care and examination immediately after delivery: Status: Acute (2) Lactating mother: Status: Acute Exam Narrative: Exam Narrative: GENERAL APPEARANCE:? normal affect, alert, no distress MOOD:? appropriate CHEST:? clear to auscultation HEART:? regular rate and rhythm ABDOMEN:? soft, non-tender the uterine fundus is at Umbilicus, Midline and is appropriate for the stage of recovery. PERINEUM:? mild edema of the perineum. EXTREMITIES:? normal and no edema Const: Vital Signs, click to edit/add: Vital Signs - 24 hr 11/15/23 08:12 11/15/23 12:30 11/15/23 16:02 Temperature 98.2 F 97.9 F 98 F Pulse Rate [Left P ulse Oximeter] 70 83 77 Respiratory Rate 16 16 16 Blood Pressure [Ri ght Arm] 98/58 L 119/77 117/70 Pulse Oximetry 97 97 98 Oxygen Delivery Me thod Room Air Room Air Room Air 11/15/23 19:33 11/16/23 00:00 Temperature 97.4 F L 97.9 F Pulse Rate [Left P ulse Oximeter] 75 74 Respiratory Rate 16 16 Blood Pressure [Ri ght Arm] 129/82 111/69 Pulse Oximetry 98 97 Oxygen Delivery Me thod Room Air Room Air Documenting provider has reviewed patient's vital signs: yes OB - DS: Summary Hospital Course Hospital Course: Lauren is a 27 y.o. G 3 P 3 who was admitted to [facility] for spontaneous onset of labor. ?She had a NVD that was uncomplicated. The patient feels well. ?The pain is well controlled with current medications. ?She has no new complaints. ?She is breast feeding and reports things are going well. the patient has done well.? Vitals have been stable.? She has remained afebrile.? Has a good appetite, is tolerating a general diet. ?She is voiding without difficulty.? She is passing gas and has not had a bowel movement.? She is ambulating and denies any dizziness.? Has small amount of rubra lochia. She is planning condoms for prevention. Problems: Denies plan: Discharge home with baby. Follow up in 2 weeks and 6 weeks. , may see if needed Hgb 10.3. Iron supplement ordered orally every other day Peripartum Data Infant delivery method: Vaginal Laceration description: None complications: none [place] Infant Gender: Male Discharge Plan: Home Status at Discharge Functional status at discharge: independent ambulation Overall status at discharge: patient is progressing back to baseline Time Spent with Patient Time attestation: Total time spent providing and/or coordinating discharge services: Time spent: Less than 30 minutes Discharge Plan Discharge Disposition: Home, Self-Care Date of Admission: 11/14/23 20:08 Attending Provider on Discharge: Etelvina Flores Primary Care Provider: Lorena Shea Condition: Stable Anticipated Discharge Date/Time: 11/16/23 12:00 Discharge Medications: New acetaminophen 500 mg Tablet 1,000 mg PO Q6H PRNQty: 0 0RF ferrous sulfate 325 mg (65 mg iron) Tablet 325 mg PO Q48H Qty: 60 0RF docusate sodium 100 mg Capsule 100 mg PO DAILY Qty: 90 0RF ibuprofen 600 mg Tablet 600 mg PO Q6H PRNQty: 60 0RF Continued DHA 200 mg capsule PO Discharge Orders: Discharge Order (Routine); Ordered 11/16/23 Ordered By: Etelvina Flores Patient Education: OB Over the Counter Medication Information, OB Vaginal/Breast Feeding Additional Instructions: Discharge instructions were reviewed with the patient including signs and symptoms of infection and home going medications Nothing vaginally for 6 weeks: no tampons or intercourse Off Work or School for 6 weeks 2-week visit: discuss infant feeding concerns, review control options and screen for anxiety/depression. 6-week visit for an annual exam. consultation services are available to all mothers and babies for the first year after delivery.? To make an appointment, please call [phone]. Activity Level: Activity as Tolerated Discharge Diet: Regular Follow Up Appointments: [facility] [Provider Group] Forms: [facility] Info Instructions
[2023-11-16 08:25] VITALS: BP 115/71; PULSE 82; RESP 14; TEMP 36.5; O2SAT 97
== END 2023-11-16 10:47 | disposition home or self-care (01) | DRG 807 ==
LOC: OB OUT 20:09 → OB 20:09
PROVIDERS: Admitting Provider Midwife; PCP Midwife; Visit Provider Midwife
DX: O99.344 Other mental disorders complicating childbirth (principal); Z37.0 Single live birth; F32.A Depression, unspecified; G47.00 Insomnia, unspecified; O99.02 Anemia complicating childbirth; D64.9 Anemia, unspecified; Z3A.37 37 weeks gestation of pregnancy
CPT/HCPCS: 01967; 36415; 85018; 85025; 86592; 87491; 87591; A9270; J0665; J2371; J2795; J7120

== ENCOUNTER 2024-12-04 08:20 | Outpatient (CLI) | payer MEDICAID, SELFPAY | END 2024-12-04 08:21 | disposition home or self-care (01) | LOC: NFLDREF 12-07 20:31 | PROVIDERS: Visit Provider Advanced Practice Midwife | DX: R53.83 Other fatigue (principal); R41.840 Attention and concentration deficit; Z13.6 Encounter for screening for cardiovascular disorders | CPT/HCPCS: 80061; 82728; 83540; 83550; 84443 ==